=== PATIENT | male | born 1965 | race Caucasian/White ===

== ENCOUNTER 2017-02-16 15:47 | Inpatient (IN) | payer BC ==
--- NOTE | ~2017-02-16 | HP ---
History And Physical [address] [place]. [address] NAME: SANA PAINTER JR : 63 STATUS : ADM IN PAT#: [id number] AGE: 51 ADM/REG DATE : 02/16/17 MR#: [id number] REPORT SERV DATE: 02/16/17 DICTATED BY: HAI HESS DATE: 02/16/17 REPORT STATUS : Draft TRANSCRIBED BY: MODDejan DATE: 02/16/17 DATE OF ADMISSION: 02/16/2017 CHIEF COMPLAINT: Nausea, vomiting, weight loss. HISTORY OF PRESENT ILLNESS: This patient is a 51-year-old gentleman, who presented as a direct admission with complaints of nausea and vomiting ongoing for approximately five weeks. Does state that he has unable to eat in over four weeks, reporting a weight loss of 50 pounds. The patient states his last bowel movement was approximately two weeks prior to this admission. He denies any fever or any chills. Does state that he has been having shortness of breath with ambulation. Denies chest pain. Does state that he is having abdominal cramping. Abdomen is slightly tender to touch. REVIEW OF SYSTEMS: Otherwise negative review of system except as listed above. PAST MEDICAL HISTORY: 1. Gastroesophageal reflux disease. 2. Parkinson. 3. Insomnia. 4. Acute bronchitis. 5. Hypothyroidism. 6. Hyperlipidemia. 7. Depression. 8. Abdominal pain. 9. Bipolar. 10.Anxiety. 11.Chronic pain. 12.Restless legs syndrome. PAST SURGICAL HISTORY: 1. Appendectomy. 2. Partial gastrectomy. ALLERGIES: NO KNOWN DRUG ALLERGIES. SOCIAL HISTORY: The patient is . Two sons, one living and one from leukemia. Uses smokeless tobacco. Denies alcohol use. MEDICATIONS: Home medications to be obtained. PHYSICAL EXAMINATION: VITAL SIGNS: O2 sats 100% on room air, weight is 192.8, temp 97.8, pulse is 101, respirations are 20, blood pressure is 154/87. GENERAL: This patient is alert and oriented, in no acute distress. NEUROLOGICAL: The patient is alert and oriented x3. History And Physical [address] [address] NAME: SANA PAINTER JR : 63 STATUS : ADM IN PAT#: [id number] AGE: 51 ADM/REG DATE : 02/16/17 MR#: [id number] REPORT SERV DATE: 02/16/17 DICTATED BY: HAI HESS DATE: 02/16/17 REPORT STATUS : Draft TRANSCRIBED BY: ELDA DATE: 02/16/17 NECK: No JVD. No nodes. CHEST: Nontender to touch. LUNGS: Clear bilateral. No wheezes, rales, or rhonchi. CARDIOVASCULAR: The patient is tachycardic. No murmurs, rubs, and gallops. ABDOMEN: Soft, slightly tender to touch. Bowel sounds are active. EXTREMITIES: No edema. No cyanosis. LABORATORY DATA: To be obtained. IMAGING: To be obtained. PLAN OF CARE: 1. Nausea and vomiting with weight loss. The patient is known with greater than 50 pounds weight loss over the past five weeks. We will obtain a nutrition consult. We will initiate IV fluids as well as antiemetics. We will consult GI to follow. The patient has been seen by Dr. Valle, outpatient. The patient will undergo an EGD in the a.m. 2. Dehydration. Again, IV fluids will be initiated. Laboratory data will be obtain. Electrolytes will be replaced per electrolyte protocol if needed. 3. Generalized weakness. The patient does state that he has had increased generalized weakness over the past several weeks. We will obtain a PT eval for discharge planning. 4. History of gastritis. Again, GI will be following the patient during this hospital stay. 5. History of gastric ulcer. 6. The patient is a full code. The patient will be followed by Dr. Jb Negron during this hospital stay. [facility]/ELDA Hai Hess NP / [id number] CC: MD Christopher Castro Lisa L
--- NOTE | ~2017-02-16 | DS ---
Discharge Summary [facility] [place] [address] [place]. [address] NAME: SANA PAINTER JR : 63 STATUS : DIS IN PAT#: [id number] AGE: 51 ADM/REG DATE : 02/16/17 MR#: [id number] REPORT SERV DATE: 02/25/17 DICTATED BY: DATE: REPORT STATUS : Draft TRANSCRIBED BY: MODL DATE: 02/24/17 ADMISSION DATE: 02/16/2017 DISCHARGE DATE: 02/24/2017 DISCHARGE DIAGNOSES: 1. Chronic nausea with vomiting. 2. Unintentional weight loss. 3. Opioid-induced constipation. 4. History of partial antrectomy. 5. Parkinson disease. CONSULTATIONS: Tony Castaneda nurse practitioner, Gastroenterology. PERTINENT TEST AND PROCEDURES: 1. Upper GI endoscopy 02/16/2017, impression:. a. Esophageal mucosal changes not likely significant, but possibly from eosinophilic esophagitis. b. An antrectomy was found, anastomosis characterized by inflammation and narrowing of the gastric outlet biopsy. c. 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 2. Upper GI endoscopy 02/19/2017, impression:. a. Normal esophagus. b. Bilious gastric fluid. c. Billroth 1 anastomosis was found. Anastomosis characterized by healthy- appearing mucosa. d. Acquired duodenal stenosis biopsy. 3. Water soluble Gastrografin study, 02/18/2017, impression: Status post gastrectomy with patent gastrojejunostomy approximately 8 cm distal to the gastrojejunostomy. There is an approximate 5 cm segment of stricture to proximal jejunum with severe luminal narrowing. 4. KUB, 02/18/2017, impression: Oral contrast ingested 5 hours earlier has passed into right colon. No upper GI tract obstruction. Mild fecal burden in the colon. CHIEF COMPLAINT UPON ADMISSION: Nausea, vomiting, and weight loss. HOSPITAL COURSE: Please refer to history and physical dated 02/16/2017, provided by nurse jen Gupta, for complete details pertaining to patient's initial presentation upon admission and health history. Please also refer to interim discharge summary dated 02/22/2017. Covering dates of service between 02/16/2017 and 02/22/2017 provided by nurse jen Gupta. Briefly, the patient is a 51-year-old male with a past medical history significant for gastroesophageal reflux disease, Parkinson disease, abdominal pain, and chronic nausea. Discharge Summary [facility] [place] [address] [place]. [address] NAME: SANA PAINTER JR : 63 STATUS : DIS IN PAT#: [id number] AGE: 51 ADM/REG DATE : 02/16/17 MR#: [id number] REPORT SERV DATE: 02/25/17 DICTATED BY: DATE: REPORT STATUS : Draft TRANSCRIBED BY: MODL DATE: 02/24/17 The patient presented to Dr. Tad Valle' office on 02/16/2017 with complaint of one-month history of nausea and vomiting. The patient also had reported 50-pound weight loss within the past month. During this office visit, the patient was reporting feeling weak and dehydrated. There was also concern for constipation, as the patient reported no bowel movement in over two weeks. Per review of Dr. Valle' office note, the patient has a history of gastric surgery for gastric ulcer in 1997. Recent upper GI showed narrowing just distal to anastomosis. There was question if stricture from NSAIDs was contributing to patient's symptoms. Outpatient EGD was recommended, however, the patient appeared clinically dehydrated and was directly admitted for hydration and upper endoscopy during admission. The patient underwent upper GI endoscopies done on 02/17/2017 and 02/19/2017. During 02/17/2017 procedure, the patient was found to have jejunal stenosis just past anastomosis in one of the jejunal limbs, dilated with scope. The patient's second upper GI endoscopy included biopsy taken at site of stenosis found at second part of duodenum. Gastric antrum anastomosis biopsy was negative for malignancy and immunohistochemistry negative for H. pylori. Duodenal biopsies, final pathologic diagnosis reported anastomotic mucosa with superficial erosion, focal activity, and regenerative changes. No H. pylori organisms seen. 1. Acute on chronic nausea with vomiting. The patient's vomiting resolved status post endoscopy during which the scope dilation of jejunum occurred. The patient has continued to use antiemetics as needed. GI also recommended erythromycin 250 mg after every meal and at bedtime until re-evaluation as an outpatient with Dr. Valle on 03/17/2017. At the time of discharge, the patient was tolerating GI soft diet without difficulty. Chronic nausea had returned to baseline. 2. Unintentional weight loss. This was secondary to narrowing distal to gastrojejunal anastomosis. The patient is now able to consume small frequent meals without vomiting. Nutritional shakes have also been encouraged. 3. Opioid-induced constipation. Prior to this admission, the patient reported no bowel movement in two weeks. The patient was placed on Movantik with recommendation to continue this medication per GI. The patient's insurance denied Movantik and prescription was changed to Amitiza 24 mcg p.o. twice daily. 4. History of antrectomy secondary to ulcer. 5. Parkinson disease. The patient requested rolling walker and cane for home use during this admission. These were provided prior to discharge. Continue home medications. DISCHARGE CONDITION: At the time of discharge, the patient is hemodynamically stable. DISCHARGE DIET: GI soft diet to be advanced as tolerated. DISCHARGE MEDICATIONS: 1. Abilify 15 mg tablet p.o. daily at bedtime. 2. Sinemet 25/100 mg tablet p.o. twice daily. 3. Erythromycin 250 mg tablet p.o. before meals and at bedtime. 4. Levothyroxine 75 mcg p.o. daily. 5. Amitiza 24 mcg p.o. twice daily. 6. Protonix 40 mg tablet p.o. before breakfast and supper x8 weeks. Therapy as Discharge Summary [address] [place]. [address] NAME: SANA PAINTER : 63 STATUS : DIS IN PAT#: [id number] AGE: 51 ADM/REG DATE : 02/16/17 MR#: [id number] REPORT SERV DATE: 02/25/17 DICTATED BY: DATE: REPORT STATUS : Draft TRANSCRIBED BY: MODL DATE: 02/24/17 recommended per GI. 7. Zanaflex 4 mg tablet p.o. twice daily. 8. Topamax 50 mg tablet p.o. daily. 9. Artane 2 mg tablet p.o. four times daily. 10.Tylenol 325 mg tablet, take two tablets p.o. every four hours as needed. 11.Dulcolax 10 mg suppository per rectum twice daily as needed. 12.Hydrocodone 10/325 mg tablet, one tablet p.o. four times daily scheduled. Hold for sedation. 13.Antivert 25 mg tablet p.o. three times daily as needed. 14.Zofran ODT 4 mg tablet, 4-8 mg p.o./sublingual every four hours as needed. 15.Voltaren 75 mg tablet p.o. twice daily. This was a home med. The patient was advised to discontinue this medication secondary to GI stricture possibly related to NSAID use. DISCHARGE INSTRUCTIONS: 1. Follow up with BARRETT Hess at [facility] 03/17/2017 at 1:15 p.m. 2. The patient was instructed to return to the emergency department for any acute onset of fever 100.4 degrees or higher lasting more than one hour, recurrence of intractable nausea or vomiting, inability to maintain p.o. intake or any other health concerns that are deviations from his health status at the time of this discharge. JENNY/ELDA ADEEL Kenney / [id number] CC: MD Christopher Mccormack II, Lisa L
--- NOTE | ~2017-02-16 | EGD ---
EGD REPORT [facility] [address] [address] NAME: SANA PAINTER JR : 63 STATUS : ADM IN PAT#: [id number] AGE: 51 ADM/REG DATE : 02/16/17 MR#: [id number] REPORT SERV DATE: 02/19/17 DICTATED BY: LANE CRISTINA DATE: 02/19/17 REPORT STATUS : Draft TRANSCRIBED BY: [facility] DATE: 02/19/17 Endoscopy Center Patient Name: Sana Painter Date of : 1965 Attending MD: LANE CRISTINA MD Procedure Date No Time: 02/19/2017 Procedure: Upper GI endoscopy Indications: Stenosis of the duodenum Medicines: Sedation Required Anesthesia Staff Assistance Complications: No immediate complications. Estimated blood loss: Minimal. Procedure: Pre-Anesthesia Assessment: - ASA Grade Assessment: III - A patient with severe systemic disease. After obtaining informed consent, the endoscope was passed under direct vision. Throughout the procedure, the patient's blood pressure, pulse, and oxygen saturations were monitored continuously. The GIF [id number] [id number] was introduced through the mouth, and advanced to the third part of duodenum. The upper GI endoscopy was accomplished without difficulty. The patient tolerated the procedure well. Findings: The examined esophagus was normal. Bilious fluid was found in the stomach. Evidence of a Billroth I anastomosis was found in the gastric antrum. The anastomosis was characterized by healthy appearing mucosa. An acquired benign-appearing, intrinsic moderate stenosis was found at 2nd part of the duodenum and was traversed. Biopsies were taken with a cold forceps for histology. Impression: - Normal esophagus. - Bilious gastric fluid. - A Billroth I anastomosis was found, anastomosis characterized by healthy appearing mucosa. - Acquired duodenal stenosis. Biopsied. Recommendation: - Return patient to [facility] for ongoing care. Procedure Code(s): --- Professional --- 22462, Esophagogastroduodenoscopy, flexible, transoral; with biopsy, single or multiple Diagnosis Code(s): --- Professional --- EGD REPORT [facility] [address] [address] NAME: SANA PAINTER JR : 63 STATUS : ADM IN [facility]#: [id number] AGE: 51 ADM/REG DATE : 02/16/17 MR#: [id number] REPORT SERV DATE: 02/19/17 DICTATED BY: LANE CRISTINA. DATE: 02/19/17 REPORT STATUS : Draft TRANSCRIBED BY: [employer] DATE: 02/19/17 Z98.0, Intestinal bypass and anastomosis status K31.5, Obstruction of duodenum CPT copyright 2013 [employer]. All rights reserved. The codes documented in this report are preliminary and upon freight rate clerk review may be revised to meet current compliance requirements. LANE CRISTINA MD 02/19/2017 10:00 AM This report has been signed electronically. Number of Addenda: 0 Note Initiated On: 02/19/2017 9:14 AM Scope Withdrawal Time 0 hours 0 minutes 0 seconds [id number] [id number]
--- NOTE | ~2017-02-16 | IDS ---
Interim Discharge Summary [facility] [address] [place]. [address] NAME: SANA PAINTER JR : 63 STATUS : ADM IN PAT#: [id number] AGE: 51 ADM/REG DATE : 02/16/17 MR#: [id number] REPORT SERV DATE: 02/22/17 DICTATED BY: HAI HESS DATE: 02/22/17 REPORT STATUS : Draft TRANSCRIBED BY: MODL DATE: 02/22/17 ADMISSION DATE: 02/16/2017 DISCHARGE DATE: DATE OF DISCHARGE: Unknown. DATE OF INTERIM NOTE: 02/22/2017. INTERIM DIAGNOSES: 1. Nausea and vomiting, improving. 2. Status post endoscopy, 02/17/2017, by Dr. Fragoso. 3. Status post endoscopy, 02/19/2017, by Dr. Lorenzo. Area biopsied, pathology, negative malignancy. 4. Generalized weakness. PT evaluation completed. No needs at this time. 5. Abdominal cramping due to #1. 6. Constipation, resolved. CONSULTATION: GI, Dr. Fragoso, 02/17/2017. IMAGIN. Gastrectomy: Impression: Apparently, approximately 8 cm distal to the gastrojejunostomy, there is an appropriate 5 cm segment of strictured proximal jejunum with severe luminal narrowing. This is a similar study to 02/04/2017. 2. KUB, 02/18/2017: Impression: No upper GI tract obstruction. Mild fecal burden in the colon. 3. Endoscopy, 02/17/2017, by Dr. Fragoso: Impression: Esophageal mucosa changes, not likely significant, but possibly for esophagitis. Jejunal stenosis just post- anastomosis as one of the jejunal limbs dilated with the scope. Antrectomy was found, anastomosis characterized by inflammation and narrowing on the gastric outlet. Biopsied. 4. Endoscopy, 02/19/2017, Dr. Lorenzo: Impression: Normal esophagus. Acquired duodenal stenosis. Biopsied. COURSE OF HOSPITAL STAY: Please refer to history and physical dictated by Hai Hess, nurse practitioner for complete admission details as well as consultation notes by GI. This patient is a 51-year-old gentleman who presented as a direct admission due to complications of nausea and vomiting ongoing for approximately five weeks prior to this admission. The patient was sent over by Dr. Tad Valle due to the patient's complaints of nausea, vomiting, and weight loss. The patient did state upon admission that he had approximately greater than 50-pound weight loss over five to six weeks. 1. Nausea and vomiting, ongoing. Patient was admitted due to complaints of ongoing nausea and vomiting. Stated he was unable to keep anything down for approximately five to six weeks and just stated he had had greater than 50-pound weight loss. GI was consulted to see. The patient did undergo two procedures as noted above. Diet has been advanced to full liquids at this time and he is tolerating. Nausea is being controlled. The Interim Discharge Summary [facility] [address] [facility] [place]. [address] NAME: SANA PAINTER JR : 63 STATUS : ADM IN [facility]#: [id number] AGE: 51 ADM/REG DATE : 02/16/17 MR#: [id number] REPORT SERV DATE: 02/22/17 DICTATED BY: HAI HESS DATE: 02/22/17 REPORT STATUS : Draft TRANSCRIBED BY: ELDA DATE: 02/22/17 patient may need a surgical consult. Awaiting GI's recommendation. 2. Status post endoscopy on 02/17/[address] Fragoso as noted above. 3. Status post endoscopy, 02/19/2017, Dr. Lorenzo. Area was biopsied, negative malignancy. 4. Generalized weakness. The patient did state upon admission that he was having difficulty ambulating due to weakness. PT evaluation has been completed at this time. The patient has been able to ambulate in the unit. No needs at this time upon discharge are noted. 5. Abdominal cramping due to #1. The patient does deny at this time abdominal tenderness or cramping. We will continue to monitor. 6. Constipation. The patient stated prior to this admission that he had gone two weeks without a bowel movement. Stool softeners were provided. The patient has had several bowel movements, last being on 02/21/2017. At this time, this has resolved. 7. Disposition. Awaiting GI's recommendation. Patient may need a surgical consult due to stenosis. The patient will be followed by Dr. Juan M Glover. [facility]/TRANL Hai Hess NP / [id number] CC: MD VICKI Castro LISA L
--- NOTE | ~2017-02-16 | EGD ---
EGD REPORT [facility] [address] [address] NAME: SANA PAINTER JR : 63 STATUS : ADM IN PAT#: [id number] AGE: 51 ADM/REG DATE : 02/16/17 MR#: [id number] REPORT SERV DATE: 02/17/17 DICTATED BY: FLO MONET DATE: 02/17/17 REPORT STATUS : Draft TRANSCRIBED BY: [facility] DATE: 02/17/17 Endoscopy Center Patient Name: Sana Painter Date of : 1965 Attending MD: FLO MONET MD Procedure Date No Time: 02/17/2017 Procedure: Upper GI endoscopy Indications: Nausea with vomiting Referring MD: ROSINA AMINLARISSA Medicines: Monitored Anesthesia Care Complications: No immediate complications. Estimated blood loss: Minimal. Procedure: Pre-Anesthesia Assessment: - ASA Grade Assessment: III - A patient with severe systemic disease. After obtaining informed consent, the endoscope was passed under direct vision. Throughout the procedure, the patient's blood pressure, pulse, and oxygen saturations were monitored continuously. The GIF H190 [id number] was introduced through the mouth, and advanced to the afferent and efferent jejunal loops. The upper GI endoscopy was accomplished without difficulty. The patient tolerated the procedure well. Findings: Mucosal changes including ringed esophagus and longitudinal furrows were found in the entire esophagus. possibly related to eosinophilic esophagitis but not biopsied due to lack of symptoms. Evidence of an antrectomy was found in the gastric antrum. The anastomosis was characterized by inflammation. Biopsies were taken with a cold forceps for histology. Estimated blood loss was minimal. A mild benign-appearing, intrinsic stenosis that was traversed was found in the jejunum just distal to the anastamosis. The scope was used to dilated this with mild resistance and a small/moderate amount of hemorrhage that resolved spontaneously. The cardia and gastric fundus were normal on retroflexion. The exam was otherwise without abnormality. Impression: - Esophageal mucosal changes not likely significant but possibly from eosinophilic esophagitis. - An antrectomy was found, anastomosis characterized by inflammation and narowing of the gastric outlet. Biopsied. - Jejunal stenosis just past anatamosis in one of the jejunal limbs - dilated with the scope. EGD REPORT [address] [place]. [address] NAME: PAINTERSANA DWYER JR : 63 STATUS : ADM IN [facility]#: [id number] AGE: 51 ADM/REG DATE : 02/16/17 MR#: [id number] REPORT SERV DATE: 02/17/17 DICTATED BY: FLO MONET DATE: 02/17/17 REPORT STATUS : Draft TRANSCRIBED BY: [employer] DATE: 02/17/17 - The examination was otherwise normal. Recommendation: - Return patient to hospital [facility] for ongoing care. - Clear liquid diet today. - Use Protonix (pantoprazole) 40 mg PO BID for 8 weeks. - Do an upper GI series at the next available appointment. Procedure Code(s): --- Professional --- 49209, Esophagogastroduodenoscopy, flexible, transoral; with biopsy, single or multiple Diagnosis Code(s): --- Professional --- K20.9, Esophagitis, unspecified Z90.3, Acquired absence of stomach [part of] K56.69, Other intestinal obstruction R11.2, Nausea with vomiting, unspecified CPT copyright 2013 [employer]. All rights reserved. The codes documented in this report are preliminary and upon medical insurance coder review may be revised to meet current compliance requirements. Flo Monet MD FLO MONET MD 02/17/2017 3:44 PM This report has been signed electronically. Number of Addenda: 0 Note Initiated On: 02/17/2017 2:53 PM Scope Withdrawal Time 0 hours 0 minutes 0 seconds [id number] [id number]
[2017-02-16 18:06] LABS: BASOPHILS ABSOLUTE 0.09 10/3/uL (0.0-0.16); EOSINOPHILS 0.9 %; EOSINOPHILS ABSOLUTE 0.08 10/3/uL (0.0-0.53); HEMATOCRIT 38.2 % (36.0-48.0); HEMOGLOBIN 12.3 g/dL (12.0-16.0); IMMATURE GRANULOCYTES 0.1 %; IMMATURE GRANULOCYTES ABSOLUTE 0.01 10/3/uL (0.0-0.11); LYMPHOCYTES 14.9 %; LYMPHOCYTES ABSOLUTE 1.35 10/3/uL (0.67-4.30); MEAN CORPUS HGB CONC 32.2 g/dL (32.0-36.0); MEAN CORPUSCULAR HEMOGLOB 22.5 pg (26.0-34.0); MEAN PLATELET VOLUME 9.8 fL (9.2-13.0); MONOCYTES 7.8 %; MONOCYTES ABSOLUTE 0.71 10/3/uL (0.21-1.20); NEUTROPHILS 75.3 %; NEUTROPHILS ABSOLUTE 6.85 10/3/uL (2.02-8.40); PLATELET COUNT 514 10/3/uL (150-400); RBC DISTRIBUTION WIDTH 18.3 % (12.0-16.0); RED CELL COUNT 5.46 10/6/uL (4.0-5.6); WHITE BLOOD CELLS 9.1 10/3/uL (4.5-10.5)
[2017-02-16 18:07] LABS: MANUAL DIFF NO %
[2017-02-16 18:24] LABS: A/G RATIO 0.9 (0.7-1.9); ALBUMIN 3.4 G/DL (3.5-5.0); ALKALINE PHOSPHATASE 117 U/L (45-117); BUN (BLOOD UREA NITROGEN) 9 MG/DL (6-23); CALCIUM, SERUM 9.4 MG/DL (8.5-10.4); CHLORIDE, SERUM 104 MMOL/L (96-112); CO2 (CARBON DIOXIDE) 24 MMOL/L (24-34); CREATININE 0.97 MG/DL (0.55-1.02); GFR AFRICAN AMERICAN 78 ML/MIN (>=60); GFR NON AFRICAN AMERICAN 67 ML/MIN (>=60); GLOBULIN 3.9 G/DL (2.5-4.1); GLUCOSE, SERUM 99 MG/DL (60-99); POTASSIUM, SERUM 4.4 MMOL/L (3.5-5.3); SGOT(AST) 37 U/L (5-40); SGPT(ALT) 46 U/L (5-65); SODIUM, SERUM 138 MMOL/L (135-148); TOTAL BILIRUBIN 0.9 MG/DL (0-1.2); TOTAL PROTEIN 7.3 G/DL (6.0-8.5)
[2017-02-17] MEDS ORDERED: NORCO1 TAB PO (12:48)
[2017-02-17] MEDS ORDERED: ART2 PO (12:48)
[2017-02-17] MEDS ORDERED: VOLT75 PO (12:48)
[2017-02-17] MEDS ORDERED: KAPIDEX60 MG PO (12:48)
[2017-02-17] MEDS ORDERED: ZOFRAN ODT4 MG PO (12:49)
[2017-02-17] MEDS ORDERED: TOPAMAX50 MG PO (12:49)
[2017-02-17] MEDS ORDERED: SIN25 PO (12:49)
[2017-02-17] MEDS ORDERED: ZANAFLEX 4 MG TA4 MG PO (12:49)
[2017-02-17] MEDS ORDERED: ABILIFY15 PO (12:50)
[2017-02-17] MEDS ORDERED: MCZ25 PO (12:50)
[2017-02-17] MEDS ORDERED: UNITHROID75 MCG PO (12:50)
[2017-02-17] MEDS ORDERED: REG PO (12:50)
[2017-02-19 05:33] LABS: CHLORIDE, SERUM 110 MMOL/L (96-112); CO2 (CARBON DIOXIDE) 20 MMOL/L (24-34); CREATININE 0.76 MG/DL (0.70-1.30); GFR AFRICAN AMERICAN 122 ML/MIN (>=60); GFR NON AFRICAN AMERICAN 105 ML/MIN (>=60); GLUCOSE, SERUM 103 MG/DL (60-99); PHOSPHORUS, SERUM 2.9 MG/DL (2.5-4.5); SODIUM, SERUM 140 MMOL/L (135-148)
[2017-02-19 05:48] LABS: BUN (BLOOD UREA NITROGEN) 2 MG/DL (6-23); CALCIUM, SERUM 8.1 MG/DL (8.5-10.4); POTASSIUM, SERUM 3.5 MMOL/L (3.5-5.3)
[2017-02-19 06:21] LABS: HEMOGLOBIN 10.1 g/dL (13.6-17.8)
[2017-02-19 06:22] LABS: HEMATOCRIT 33.4 % (40.0-51.0)
[2017-02-20 07:27] LABS: BASOPHILS 0.9 %; BASOPHILS ABSOLUTE 0.05 10/3/uL (0.0-0.16); EOSINOPHILS 5.3 %; EOSINOPHILS ABSOLUTE 0.28 10/3/uL (0.0-0.53); HEMATOCRIT 32.5 % (40.0-51.0); IMMATURE GRANULOCYTES 0.2 %; IMMATURE GRANULOCYTES ABSOLUTE 0.01 10/3/uL (0.0-0.11); LYMPHOCYTES 23.3 %; LYMPHOCYTES ABSOLUTE 1.24 10/3/uL (0.67-4.30); MEAN CORPUS HGB CONC 30.8 g/dL (32.0-36.0); MEAN CORPUSCULAR HEMOGLOB 22.1 pg (26.0-34.0); MEAN CORPUSCULAR VOLUME 71.9 fL (80-100); MEAN PLATELET VOLUME 9.8 fL (9.2-13.0); MONOCYTES 8.6 %; MONOCYTES ABSOLUTE 0.46 10/3/uL (0.21-1.20); NEUTROPHILS 61.7 %; NEUTROPHILS ABSOLUTE 3.28 10/3/uL (2.02-8.40); PLATELET COUNT 380 10/3/uL (150-400); RBC DISTRIBUTION WIDTH 18.9 % (12.0-16.0); RED CELL COUNT 4.52 10/6/uL (4.7-6.1)
[2017-02-20 07:28] LABS: MANUAL DIFF NO %; WHITE BLOOD CELLS 5.3 10/3/uL (4.5-10.5)
[2017-02-20 07:34] LABS: BUN (BLOOD UREA NITROGEN) 1 MG/DL (6-23); CALCIUM, SERUM 8.4 MG/DL (8.5-10.4); CHLORIDE, SERUM 108 MMOL/L (96-112); CREATININE 0.76 MG/DL (0.70-1.30); GFR AFRICAN AMERICAN 122 ML/MIN (>=60); GFR NON AFRICAN AMERICAN 105 ML/MIN (>=60); GLUCOSE, SERUM 118 MG/DL (60-99); POTASSIUM, SERUM 3.6 MMOL/L (3.5-5.3); SODIUM, SERUM 141 MMOL/L (135-148)
[2017-02-20 07:35] LABS: CO2 (CARBON DIOXIDE) 26 MMOL/L (24-34)
[2017-02-20 08:08] LABS: ANISOCYTOSIS 1+ (5-10/OIF) (0-5/OIF); PLATELET ESTIMATE ADQ (ADEQUATE)
[2017-02-22 04:07] LABS: BUN (BLOOD UREA NITROGEN) 3 MG/DL (6-23); CHLORIDE, SERUM 107 MMOL/L (96-112); CO2 (CARBON DIOXIDE) 26 MMOL/L (24-34); CREATININE 0.83 MG/DL (0.70-1.30); GFR AFRICAN AMERICAN 117 ML/MIN (>=60); GFR NON AFRICAN AMERICAN 101 ML/MIN (>=60); GLUCOSE, SERUM 98 MG/DL (60-99); POTASSIUM, SERUM 3.6 MMOL/L (3.5-5.3); SODIUM, SERUM 141 MMOL/L (135-148)
[2017-02-23 04:46] LABS: BASOPHILS 1.1 %; BASOPHILS ABSOLUTE 0.06 10/3/uL (0.0-0.16); EOSINOPHILS 3.1 %; EOSINOPHILS ABSOLUTE 0.17 10/3/uL (0.0-0.53); HEMATOCRIT 35.2 % (40.0-51.0); HEMOGLOBIN 11.2 g/dL (13.6-17.8); IMMATURE GRANULOCYTES 0.2 %; IMMATURE GRANULOCYTES ABSOLUTE 0.01 10/3/uL (0.0-0.11); LYMPHOCYTES 31.5 %; MEAN CORPUS HGB CONC 31.8 g/dL (32.0-36.0); MEAN CORPUSCULAR HEMOGLOB 22.6 pg (26.0-34.0); MEAN PLATELET VOLUME 9.8 fL (9.2-13.0); MONOCYTES 9.4 %; MONOCYTES ABSOLUTE 0.51 10/3/uL (0.21-1.20); NEUTROPHILS 54.7 %; NEUTROPHILS ABSOLUTE 2.95 10/3/uL (2.02-8.40); PLATELET COUNT 373 10/3/uL (150-400); RBC DISTRIBUTION WIDTH 19.2 % (12.0-16.0); RED CELL COUNT 4.96 10/6/uL (4.7-6.1); WHITE BLOOD CELLS 5.4 10/3/uL (4.5-10.5)
[2017-02-23 04:47] LABS: MANUAL DIFF NO %
[2017-02-23 05:00] LABS: BUN (BLOOD UREA NITROGEN) 3 MG/DL (6-23); CALCIUM, SERUM 9.2 MG/DL (8.5-10.4); CHLORIDE, SERUM 108 MMOL/L (96-112); CO2 (CARBON DIOXIDE) 25 MMOL/L (24-34); CREATININE 0.87 MG/DL (0.70-1.30); GFR AFRICAN AMERICAN 115 ML/MIN (>=60); GFR NON AFRICAN AMERICAN 99 ML/MIN (>=60); GLUCOSE, SERUM 96 MG/DL (60-99); POTASSIUM, SERUM 3.6 MMOL/L (3.5-5.3); SODIUM, SERUM 143 MMOL/L (135-148)
[2017-02-24 06:49] LABS: BUN (BLOOD UREA NITROGEN) 6 MG/DL (6-23); CALCIUM, SERUM 9.4 MG/DL (8.5-10.4); CHLORIDE, SERUM 106 MMOL/L (96-112); CO2 (CARBON DIOXIDE) 26 MMOL/L (24-34); CREATININE 0.93 MG/DL (0.70-1.30); GFR AFRICAN AMERICAN 109 ML/MIN (>=60); GFR NON AFRICAN AMERICAN 94 ML/MIN (>=60); GLUCOSE, SERUM 104 MG/DL (60-99); POTASSIUM, SERUM 4.2 MMOL/L (3.5-5.3); SODIUM, SERUM 138 MMOL/L (135-148)
[2017-02-24] MEDS ORDERED: ERY-TAB250 MG PO (11:35)
[2017-02-24] MEDS ORDERED: MOVANTIK25 MG PO (11:37)
[2017-02-24] MEDS ORDERED: PROTONIX PO (11:39)
[2017-02-24] MEDS ORDERED: T PO (11:43)
[2017-02-24] MEDS ORDERED: BISR PR (11:44)
== END 2017-02-24 13:48 | disposition home or self-care (01) | DRG 392 ==
LOC: 4EA 15:47
PROVIDERS: Internal Medicine; Internal Medicine Gastroenterology; Nurse Practitioner Adult Health; Nurse Practitioner Family
PROC: 0DB78ZX Excision of Stomach, Pylorus, Via Natural or Artificial Opening Endoscopic, Diagnostic (ICD-10-PCS; principal; 2017-02-17 15:18)
PROC: 0DB98ZX Excision of Duodenum, Via Natural or Artificial Opening Endoscopic, Diagnostic (ICD-10-PCS; 2017-02-19)
DX: R11.2 Nausea with vomiting, unspecified (principal); G20 Parkinson's disease; K59.03 Drug induced constipation; T40.2X5A Adverse effect of other opioids, initial encounter; E86.0 Dehydration
CPT/HCPCS: 74000; 74240; 80048; 80053; 83735; 84100; 84443; 85014; 85018; 85025; 88305; 88342; 97116-GP; 97161-GP; A9270-GY; C9113; J0330; J0456; J1170; J2405; J2550; J2765; J3010

== ENCOUNTER 2017-02-26 18:59 | Inpatient (IN) | payer BC ==
--- NOTE | ~2017-02-26 | OP ---
Record Of Operation [facility] [address] [place]. [address] NAME: SANA PAINTER JR : 63 STATUS : ADM IN 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 PROCEDURE: Laparotomy with distal gastrectomy, resection of efferent limb of gastrojejunal anastomosis, and Mary-en-Y gastrojejunostomy. SURGEON: Julieta Tyler M.D. ANESTHESIA: General with intubation. COMPLICATIONS: None. ESTIMATED BLOOD LOSS: Less than 50 mL. SPECIMENS: Distal stomach including gastrojejunal anastomosis and segment of efferent limb of jejunum. DRAINS: [place] in subcutaneous tissue. LAP AND SPONGE COUNT: Correct x3. 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 It was felt that laparotomy with resection of the involved portion of the efferent limb, possibly include the gastrojejunal anastomosis, was indicated. This procedure, the risks, benefits, and alternatives, including not limited to the risk for bleeding, infection, enterotomy, injury to any abdominal structure, postop small bowel obstruction, ileus, incisional hernia, dehiscence, anastomotic leak, resulting in peritonitis, sepsis, and , recurrent gastric outlet obstruction, gastroparesis, and unforeseen complications including deep venous thrombosis, pulmonary embolus, myocardial infarction, stroke, pneumonia, and , were fully and completely explained to the patient and his family at length on several occasions prior to surgery. The fact that this was a major operation with risk for major morbidity and mortality has been explained as well as expected length of recovery. The patient had questions, which were answered. He fully understood the risks and agreed to the surgery as planned. FINDINGS: The patient was found to have a tight stricture of the efferent limb just beyond the anastomosis. This was apparent obstruction. However, the gastrojejunal anastomosis itself also appeared to be tight and was felt also possibly to be obstructed and that fluid Record Of Operation [facility] [address] [place]. [address] NAME: SANA PAINTER JR : 63 STATUS : ADM IN PAT#: [id number] AGE: 51 ADM/REG DATE : 02/26/17 MR#: [id number] REPORT SERV DATE: 03/05/17 DICTATED BY: JULIETA TYLER III DATE: 03/05/17 REPORT STATUS : Draft TRANSCRIBED BY: ELDA DATE: 03/05/17 would not pass through it after being passed into the stomach through the NG tube. Therefore, resection of the distal stomach with the proximal portion of the efferent limb of the jejunum was performed. DESCRIPTION OF PROCEDURE: After being properly identified and after discussing the risks of surgery with the patient's family again in the preoperative area, the patient was taken to the operating room and placed in the supine position on the operating room table. General anesthesia was administered. He was intubated without difficulty. An NG tube and a Zee catheter were inserted. The abdomen was prepped and draped sterilely in the usual fashion. After an appropriate "time-out" per JCAHO standards, a midline incision was made from just beneath the xiphoid process to the umbilicus. The incision was continued through the subcutaneous tissue. Hemostasis was controlled with electrocautery. The incision was continued through the fascia. The abdominal cavity was entered. There were dense adhesions between the omentum and several loops of small bowel and the underside of the abdominal wall. Using sharp dissection, these adhesions were carefully divided. This took a considerable amount of time. The abdomen was inspected. We identified the gastrojejunal anastomosis. We clearly identified the afferent and efferent limbs. The afferent limb was fairly long. The exact point of obstruction was not initially clear. There was no obvious extrinsic abnormality of either the afferent or efferent limbs. There were dense adhesions and the efferent limb was very twisted and torturous. Using sharp dissection, these adhesions were carefully divided and the efferent limb was carefully straightened proximally and distally. There was still no obvious point of obstruction. For this reason, about 500 mL of saline was passed through the NG tube in the stomach. The stomach was noted to distend with fluid. It was noted that the fluid did not pass readily through the gastrojejunal anastomosis. The gastrojejunal anastomosis itself was very tight, perhaps 1 cm in diameter to 2 cm in diameter at most. It was felt that this might be the point of obstruction and was therefore felt that resection of the distal stomach to include this anastomosis was indicated. We selected a point for division of the afferent limb of the anastomosis, just proximal to the stomach. A window was made in the mesentery to the jejunum at this point. A CLIVE stapler was used to divide the jejunum at this point. We then selected a point for division of the efferent limb just beyond the anastomosis. A CLIVE stapler was used to divide the jejunum at this point. We then divided the distal stomach just proximal to the anastomosis. This was sent as a gastrojejunal anastomosis. We then performed a Mary-en-Y gastrojejunostomy. This was performed by making an anastomosis end yrrtbfe-sw-fsgh jejunum, to the antimesenteric border of the efferent limb of the jejunum. In doing this, we noted on opening the jejunum that there was a tight stricture in the jejunum which had been left. This was located some 6 cm distal to the original anastomosis. This was a very tight intrinsic stricture. It was not apparent externally and this was the region we could not initially recognize it. This additional segment of small bowel consisting of the proximal efferent limb; by using the CLIVE stapler, it was divided. This was an additional 4-5 cm of jejunum. This was sent separately as proximal jejunum of the efferent limb. Using normal jejunum of the efferent limb, we now performed an end gfrzjto-cq-pghn jejunal anastomosis. This was performed in two layers, using interrupted 3-0 silk sutures on the outer posterior layer, running 3-0 chromic suture on the inner layer, and interrupted 3-0 silk sutures on Record Of Operation [place] [id number] [facility] [place]. [address] NAME: SANA PAINTER : 63 STATUS : ADM IN [facility]#: [id number] AGE: 51 ADM/REG DATE : 02/26/17 MR#: [id number] REPORT SERV DATE: 05/12/17 DICTATED BY: JULIETA TYLER III AU DATE: 03/05/17 REPORT STATUS : Draft TRANSCRIBED BY: ELDA DATE: 03/05/17 the outer anterior layer. Upon completion of this, the anastomosis was widely patent to palpation. It was some 4-5 cm in length. It was not twisted or kinked in anyway and was not under any tension. The divided end of the jejunum was oversewn with interrupted 3-0 silk sutures. We then completed the Mary-en-Y portion of the anastomosis, an enteroenterostomy, some 30 cm distal to the gastric anastomosis. This was performed by a slei-hw-mzyc anastomosis between the proximal jejunum or original afferent limb; to the efferent limb, some 34 cm distal to the anastomosis. This was performed in a kjnn-iz-adfg fashion. The antimesenteric border of the small bowel proximally and distally were aligned with interrupted 3-0 silk sutures. A small opening was then made in the antimesenteric border of the small bowel proximally and distally and a CLIVE stapler was placed through this and fired. The defect created by the stapler was closed in two layers, using running 3-0 chromic suture on the inner layer, and interrupted 3-0 silk sutures on the outer anterior layer. The "crotch" of the anastomosis. It was secured with interrupted 3-0 silk sutures. Upon completion of this, the anastomosis here was widely patent to palpation. It was not twisted or kinked in any way. It was not under any tension. The mesenteric defect was closed with a running 3-0 chromic suture. The entire abdominal cavity irrigated copiously with saline. Hemostasis was assured. Both anastomosis were rechecked and inspected. Hemostasis was assured. The fascia was closed with a running looped #1 PDS suture. The skin was closed with skin ras over a Xin drain which was brought through the inferior aspect of the incision. Dressings were applied. Anesthesia was reversed, and the patient was taken to the recovery room in stable condition. He tolerated the procedure well. His family was informed results of surgery. The patient will remain in the hospital for postoperative care. This procedure was extremely difficult secondary to the patient's previous gastrectomy and adding 75% of time to the surgery and for this reason, modifier 22 was added to the procedure code. EVY/ELDA Julieta Tyler III, M.D. / [id number] CC: MD Christopher Norton Lisa L
--- NOTE | ~2017-02-26 | HP ---
History And Physical [place] [id number] [facility] [place]. [address] NAME: SANA PAINTER JR : 63 STATUS : ADM IN PAT#: [id number] AGE: 51 ADM/REG DATE : 02/26/17 MR#: [id number] REPORT SERV DATE: 02/27/17 DICTATED BY: KIMBERLY WEBB DATE: 02/26/17 REPORT STATUS : Draft TRANSCRIBED BY: MODDejan DATE: 02/26/17 DATE OF ADMISSION: 02/26/2017 POINT OF ENTRY: [facility] Emergency Department. PRIMARY RECORD CENTER SPECIALIST: Tad Valle M.D. CHIEF COMPLAINT: Nausea, vomiting, and vision loss. HISTORY OF PRESENT ILLNESS: Mr. Painter is a 51-year-old gentleman with a history of gastroesophageal reflux disease and peptic ulcer disease status post gastrojejunostomy approximately 20 years ago, who presents back to the emergency department today with reports of intractable nausea, vomiting, as well as vision loss. The patient was admitted to the Hospitalist Service from 02/16/2017 through 02/25/2017 for intractable nausea, vomiting, as well as weight loss. The patient underwent EGD on 02/17/2017 which showed some jejunal stenosis status post dilatation; however, the patient continued to have symptoms and therefore underwent repeat EGD on 02/19/2017, which reportedly showed duodenal stenosis, but I do not see any evidence of repeat dilatation. Biopsies were taken which reportedly are negative for malignancy. The patient states that at the time of discharge, he was able to tolerate some amount of oral intake. His nausea was much improved; however, he states that he was primarily using IV antiemetics. He states that upon discharge to home yesterday and without the use of IV antiemetics his nausea worsened and has had intractable nausea and vomiting since discharge. The patient states that beginning about Wednesday or Wednesday of this week about the time they started him on erythromycin he started develop vision troubles. At first he states that it was some blurry vision; however, this has progressed in severity to the point where now he states he only can see shadows. He is unable to read the newspaper, unable to see any detail on TV. He denies any other neurologic type symptoms. It is unclear if he mentioned any of these vision loss or blurry vision troubles to his physicians or nurses while he was inpatient. Initial evaluation in the emergency department was notable for labs consistent with some acute kidney injury and dehydration. CT scan of the brain is pending at the time of dictation. REVIEW OF SYSTEMS: Comprehensive review of systems otherwise negative unless listed in history of present illness. PREVIOUS MEDICAL HISTORY: 1. Gastroesophageal reflux disease with peptic ulcer disease status post gastrojejunostomy. 2. Parkinson disease. 3. Hypothyroidism. History And Physical [address] [address] NAME: SANA PAINTER JR : 63 STATUS : ADM IN PAT#: [id number] AGE: 51 ADM/REG DATE : 02/26/17 MR#: [id number] REPORT SERV DATE: 02/27/17 DICTATED BY: KIMBERLY WEBB DATE: 02/26/17 REPORT STATUS : Draft TRANSCRIBED BY: ELDA DATE: 02/26/17 4. Chronic pain, on chronic narcotics. 5. Depression. 6. Anxiety. 7. Restless legs. 8. Bipolar disease. PAST SURGICAL HISTORY: 1. Appendectomy. 2. Partial gastrojejunostomy/Billroth-I procedure. 3. Back surgery. ALLERGIES: TO REGLAN AND GABAPENTIN. HOME MEDICATIONS: 1. Albuterol one to two puff inhalation q.6 hours. 2. Abilify 15 mg q.h.s. 3. Sinemet 25/100 mg one tablet t.i.d. 4. Dexilant 60 mg daily. 5. Erythromycin 250 mg q.i.d. 6. [place] 10/325 mg one tablet q.i.d. 7. Levothyroxine 75 mcg daily. 8. Amitiza 24 mcg b.i.d. 9. Meclizine 25 mg t.i.d. p.r.n. 10.Zofran 4 mg ODT q.4 hours p.r.n. 11.Protonix 40 mg b.i.d. 12.Zanaflex 4 mg b.i.d. 13.Topamax 50 mg daily. 14.Artane 2 mg t.i.d. SOCIAL HISTORY: Denies any tobacco, alcohol, or illicits. FAMILY MEDICAL HISTORY: Mother with diabetes and coronary artery disease. Father with diabetes. Siblings are otherwise healthy. LABS AND IMAGIN. White count is 10.4, hemoglobin is 12.1, hematocrit is 36.9, and platelet count is 512. 2. Sodium is 137, potassium 3.9, chloride 104, carbon dioxide 21, BUN 9, creatinine 1.30, glucose is 116, calcium is 9.5, protein is 7.5, albumin is 3.7, bilirubin is 0.6, ALT is 8, AST 11, and alkaline phosphatase is 111. 3. Urinalysis; spec gravity is 1.011. No evidence of any infection. 4. CT scan of the brain as I mentioned previously, is pending at the time of dictation. PHYSICAL EXAMINATION: VITAL SIGNS: Temperature is 97.1 degrees Fahrenheit, pulse is 118, respirations 22, saturating 100% on room air, and blood pressure 130/99. GENERAL: The patient is awake and alert, in no acute distress, resting comfortably. He is a well-developed, well-nourished, male. History And Physical [address] [address] NAME: SANA PAINTER JR : 63 STATUS : ADM IN [facility]#: [id number] AGE: 51 ADM/REG DATE : 02/26/17 MR#: [id number] REPORT SERV DATE: 02/27/17 DICTATED BY: KIMBERLY WEBB DATE: 02/26/17 REPORT STATUS : Draft TRANSCRIBED BY: ELDA DATE: 02/26/17 HEENT: Atraumatic and normocephalic. Slightly dry mucous membranes. Pupils are equal, round, reactive to light and accommodation. Extraocular eye movements are intact. No scleral icterus. NECK: No jugular venous distention. No carotid bruits. CARDIAC: Regular rate and rhythm. No murmurs, rubs, or gallops. Normal S1, S2. LUNGS: Clear to auscultation bilaterally. No wheezes, rhonchi, or rales. ABDOMEN: Soft, nontender, and nondistended with good bowel sounds. No rebound, guarding, or rigidity. EXTREMITIES: Warm and perfused. No cyanosis, clubbing, or edema. SKIN: Warm and dry. PSYCH: Affect appropriate. NEURO: Alert and orient x3. The patient has good pupillary afferent and efferent reflexes; however, he states that he is unable to count fingers at a short distance and states that he is unable to track. However, I do exhibit on casual observation good extraocular eye movements. Funduscopic exam performed by ER physician was reportedly unremarkable. Speech is normal. Gait not assessed. ASSESSMENT AND PLAN: Mr. Painter is a 51-year-old gentleman, who presents with intractable nausea, vomiting, as well as a few day history of blurry vision and vision loss. PROBLEM LIST: 1. Intractable nausea and vomiting. 2. Acute kidney injury and dehydration. 3. Vision loss. 4. History of peptic ulcer disease status post gastrojejunostomy. 5. History of duodenal and jejunal stenosis. PLAN: 1. Intractable nausea and vomiting. We will readmit the patient to the Hospitalist Service. Provide supportive care with antiemetics, pain control with IV fluids. We will consult the patient's primary waiter/waitress captain, Dr. Manns for assistance. 2. Vision loss. Unclear etiology as what this could be. CT scan of the brain is pending. We will consult Neurology as well as order an MRI for the morning. The patient states that it started when he was started on the erythromycin, therefore we will hold this overnight and see if that has any improvement. The patient may need a formal vision testing with Optometry and/or Ophthalmology pending results of neuro workup. 3. History of gastrojejunostomy with duodenal jejunal stenoses. Continue PPI b.i.d. as per plan. Again, consult GI for assistance. 4. DVT prophylaxis. Lovenox subcu. CODE STATUS: The patient wished to be full code. TONY/ELDA Kimberly Chavez History And Physical [address] [address] NAME: SANA PAINTER JR : 63 STATUS : ADM IN [facility]#: [id number] AGE: 51 ADM/REG DATE : 02/26/17 MR#: [id number] REPORT SERV DATE: 02/27/17 DICTATED BY: KIMBERLY WEBB DATE: 02/26/17 REPORT STATUS : Draft TRANSCRIBED BY: MODL DATE: 02/26/17 MD Roxann / [id number] CC: Jayme Walker MD Gregory Olds, MD
--- NOTE | ~2017-02-26 | DS ---
Discharge Summary [facility] [address] [place]. [address] NAME: SANA PAINTER JR : 63 STATUS : ADM IN PAT#: [id number] AGE: 51 ADM/REG DATE : 02/26/17 MR#: [id number] REPORT SERV DATE: 03/12/17 DICTATED BY: JOSE EDUARDO LOPEZ DATE: 03/12/17 REPORT STATUS : Draft TRANSCRIBED BY: MODL DATE: 03/12/17 ADMISSION DATE: 02/26/2017 DISCHARGE DATE: CURRENT HOSPITAL DIAGNOSES: 1. Jejunal stenosis, status post surgical correction. 2. Acute kidney injury, resolved. 3. Temporal vision loss, resolved. 4. Peptic ulcer disease. 5. Opioid-induced constipation. 6. Protein-calorie malnutrition. 7. Parkinson disease. 8. Bipolar disorder. CONSULTATIONS: Dr. Valle and Dr. Dockery. PROCEDURES: As listed in the interim summary. CURRENT PHYSICAL FINDINGS AND HISTORY OF PRESENT ILLNESS: Please see dictated H and P by Dr. Hackett as well as interim summary by Dr. Bryant on the . I took over the patient's care on the and will dictate to that point. The patient was post surgery at that time. He was receiving TPN and he had completed his neurologic workup. He was being titrated off IV pain medications and was tolerating well. On the , he began titrating off the TPN and started eating. On the , he was having no difficulties and ambulatory. On the , he was felt stable for discharge. DISPOSITION: He is discharged home. He will follow up with Dr. Dockery as directed. Home Health has been requested. MEDICATIONS: Abilify 15 at bedtime, Sinemet 25/100 four times daily from a previous t.i.d. dosing, Synthroid 75 one per day, Zyprexa 10 mg one per day, a new Rx Dexilant 60 one per day, Topamax 50 one per day, Artane 2 mg t.i.d., folic acid 1 mg daily, hydrocodone 10/325 q.i.d. p.r.n., ProAir inhaler q.6, Zofran 4 mg q.4 p.r.n., Zanaflex 4 mg t.i.d. p.r.n., Antivert 25 t.i.d. p.r.n., Amitiza 24 b.i.d. p.r.n. TLF/MODL Jose Eduardo Lopez M.D. / [id number] CC: Jose Eduardo Lopez M.D. Discharge Summary [address] [address] NAME: SANA PAINTER JR : 63 STATUS : ADM IN PAT#: [id number] AGE: 51 ADM/REG DATE : 02/26/17 MR#: [id number] REPORT SERV DATE: 03/12/17 DICTATED BY: JOSE EDUARDO LOPEZ DATE: 03/12/17 REPORT STATUS : Draft TRANSCRIBED BY: MODL DATE: 03/12/17 ROSINA COHEN
--- NOTE | ~2017-02-26 | IDS ---
Interim Discharge Summary [facility] [address] [place]. [address] NAME: SANA PAINTER JR : 63 STATUS : ADM IN [facility]#: [id number] AGE: 51 ADM/REG DATE : 02/26/17 MR#: [id number] REPORT SERV DATE: 03/09/17 DICTATED BY: REILLY BRYANT DATE: 03/09/17 REPORT STATUS : Draft TRANSCRIBED BY: MODL DATE: 03/09/17 ADMISSION DATE: 02/26/2017 DISCHARGE DATE: 03/08/2017 INTERIM DIAGNOSES: 1. Jejunal stenosis, status post this surgery on 03/05/2017, with laparotomy and distal gastrectomy, resection of efferent limb of gastrojejunal anastomosis, and Mary-en-Y gastric jejunostomy by Dr. Dockery. 2. Acute kidney injury. 3. Bilateral temporary vision loss, negative Neuro workup. 4. Peptic ulcer disease. 5. Opioid constipation. 6. Protein-calorie malnutrition, currently on TPN, secondary to underlying jejunal stenosis. 7. Parkinson's disease. 8. Thiamine and folate deficiency. 9. Bipolar disorder. 10.Restless legs syndrome. HOSPITAL COURSE: Please see H and P for complete details. HISTORY OF PRESENT ILLNESS: Briefly, Mr. Painter is a 51-year-old male with history of peptic ulcer disease, gastric outlet obstruction, and gastrojejunal anastomosis, who presents after having persistent nausea, vomiting, weakness, and resultant protein and calorie malnutrition. The patient was evaluated by Surgery. Due to patient's inability to tolerate p.o. safely, the patient was placed on TPN with a PICC line. The patient did have GERMAN with secondary to nausea and vomiting and decreased p.o. intake, this did show improvement after IV fluids, aggressive supportive treatment, and subsequent TPN. The patient was noted to be optimized and the energy began to improve. The patient had underwent surgery as described above by Dr. Dockery. Currently, he is postop day #3 with NG tube. He is currently still undergoing bowel regimen due to mild ileus. He has not had that challenge to GI tract with feeds currently. He is currently being monitored with daily labs. The patient has had improvement with ambulatory status and energy, and resolution of persistent nausea and vomiting. Incidentally, the patient did have bilateral vision loss in the presence of Parkinson's disease, and electrolyte and vitamin and mineral deficiencies. The patient was thought to have clinical symptoms of stroke, however, workup was essentially negative including MRI; and the patient did have resolution of visual loss. This was possibly secondary to volume versus electrolyte discrepancies. Currently, barriers to discharge are healing process, ability to transition from TPN safely and challenged for tube feeds versus feeding source outside of TPN. DDN/MODL Reilly Billingsley Interim Discharge Summary [address] [address] NAME: SANA PAINTER JR : 63 STATUS : ADM IN PAT#: [id number] AGE: 51 ADM/REG DATE : 02/26/17 MR#: [id number] REPORT SERV DATE: 03/09/17 DICTATED BY: REILLY BRYANT DATE: 03/09/17 REPORT STATUS : Draft TRANSCRIBED BY: MODL DATE: 03/09/17 MD Manny / [id number] CC: MD VICKI Norton LISA L
--- NOTE | ~2017-02-26 | CN ---
Consultation Report [facility] [address] [place]. [address] NAME: SANA PAINTER JR : 63 STATUS : ADM IN PAT#: [id number] AGE: 51 ADM/REG DATE : 02/26/17 MR#: [id number] REPORT SERV DATE: 03/04/17 DICTATED BY: JULIETA TYLER III DATE: 03/04/17 REPORT STATUS : Draft TRANSCRIBED BY: ELDA DATE: 03/04/17 DATE OF CONSULTATION: 03/04/2017 ADDENDUM: Mr. Painter is stable at this time. His vision has returned. He continues to have evidence for near complete gastric outlet obstruction. I have recommended surgery. Will schedule this for tomorrow for the patient. This will be a laparotomy, with resection of the involved obstructed proximal small bowel, which will likely involve resection of his previous gastrojejunostomy and new gastrojejunal anastomosis. The area of obstruction in the small bowel appeared to be about 6 cm distal to the gastrojejunal anastomosis. Therefore, we were able to resect this without revising the gastrojejunal anastomosis and will do so. However, because of the likelihood of involvement of the mesentery to this portion of the small bowel with the mesentery to the portion of the small bowel involved with this anastomosis, it was likely that revision of the gastrojejunostomy with distal gastrectomy will be required. In this event, we may reconstruct this with a Mary-en-Y gastrojejunostomy, may also place a jejunal feeding tube. This procedure, the risks, benefits, and alternatives, including not limited to the risk for bleeding, infection, enterotomy, injury to abdominal structure, postop small bowel obstruction, ileus, incisional hernia, dehiscence, anastomotic leak, resulting in peritonitis, sepsis, and , recurrent gastric outlet obstruction or prolonged gastroparesis and unforeseen complications including deep venous thrombosis, pulmonary embolus, myocardial infarction, stroke, pneumonia, anesthetic complications, and , have been fully and completely explained to the patient's family prior to surgery. The fact that this is a major operation with risk for major morbidity and mortality has been explained, the expected length of recovery has been explained. The patient had questions, which were answered. He clearly understands the risks and agrees to the surgery as planned. EVY/ELDA Julieta Tyler III, M.D. / [id number] CC: MD ROSINA NortonDIAS
--- NOTE | ~2017-02-26 | CN ---
Consultation Report [facility] [address] [place]. 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 HISTORY OF PRESENT ILLNESS: Mr. Painter is a 51-year-old man, who has had a progressive history over at least the last 50 days of nausea, vomiting, weight loss with at least a 50 to 60-pound weight loss during this time. He had presented to the [facility] where he was noted to have a narrowing just distal to his anastomosis, however, nothing apparently was done at that time. He was seen by me in the office and then directly admitted. At that time, he underwent an EGD here where he was noted to have narrowing distal to the anastomosis, this was repeated two days later. The patient reports, he initially did better approximately day and a half following this, but he believes it was mostly secondary to antiemetics administered in the hospital and after returning home, his symptoms returned essentially the same level they did before and he continued to lose weight. He also has had some vision loss and that is currently being worked up by Anesthesia. Symptoms are fairly moderate to severe and are essentially worsening as associated weight loss with this. PAST MEDICAL HISTORY: The patient's past medical history includes depression, Parkinson disease, bipolar disease. MEDICATIONS: His home meds included albuterol, Abilify, carbidopa, levodopa, Dexilant, erythromycin, hydrocodone, levothyroxine, lubiprostone, meclizine, ondansetron, pantoprazole, tizanidine, Topamax, Artane. ALLERGIES: HE IS ALLERGIC TO REGLAN. SOCIAL HISTORY: He does not smoke. He does not drink. FAMILY HISTORY: Includes a gastric ulcer in his father and leukemia in one of his children. REVIEW OF SYSTEMS: Notable for fatigue, decreased appetite, weight loss, depression, anxiety, stress, some shortness of breath, abdominal pain, heartburn, belching gas, bloating, constipation. Otherwise a 14-point review of systems reviewed and otherwise negative unless mentioned in the HPI. PHYSICAL EXAMINATION: VITAL SIGNS: The temperature at 97.8, heart rate 80, blood pressure 141/78, O2 sat was 97% on room air. GENERAL: The patient was lying in bed, in no apparent distress. HEENT: Head is atraumatic and normocephalic. Oropharynx revealed moist mucous membranes, Consultation Report [address] [address] NAME: SANA PAINTER JR : 63 STATUS : ADM IN PAT#: [id number] AGE: 51 ADM/REG DATE : 02/26/17 MR#: [id number] REPORT SERV DATE: 02/28/17 DICTATED BY: TAD VALLE DATE: 02/27/17 REPORT STATUS : Draft TRANSCRIBED BY: ELDA DATE: 02/27/17 clear. NECK: Revealed no crepitus or thyromegaly. LUNGS: Clear. CARDIOVASCULAR: Revealed regular rhythm. ABDOMEN: Obese, but was nontender, not significantly distended. EXTREMITIES: Revealed no clubbing, cyanosis, or edema. NEUROLOGIC: He does have a tremor, but no asterixis. IMPRESSION: Persistent nausea, vomiting, status post with a history of antrectomy with gastrojejunostomy suspected Billroth I based upon most recent report now with intractable nausea and vomiting and significant weight loss associated with the jejunal stricture does not respond to conservative management. At this point, given the patient's severity of his symptoms and significant weight loss, I believe surgical management will be the best option at this point, therefore, we will consult Surgery and we will continue the neurological workup for his vision loss. Thank you for allowing me to evaluate the patient. Please do not hesitate to contact me should you have any further concerns or questions. GO/MODL Tad Valle MD / [id number] CC: MD VICKI Mccormack II, LISA L
--- NOTE | ~2017-02-26 | CN ---
Consultation Report [facility] [address] [place]. [address] NAME: SANA PAINTER JR : 63 STATUS : ADM IN PAT#: [id number] AGE: 51 ADM/REG DATE : 02/26/17 MR#: [id number] REPORT SERV DATE: 02/27/17 DICTATED BY: DATE: REPORT STATUS : Draft TRANSCRIBED BY: MODL DATE: 02/27/17 NEUROLOGY CONSULTATION DATE OF CONSULTATION: 02/27/2017 REASON FOR CONSULT: Vision loss. HISTORY OF PRESENT ILLNESS: This is a 51-year-old male recently hospitalized for intractable nausea, vomiting, as well as the concern for weight loss with the patient recently discharged from the hospital. Afterwards, the patient was noted to have recurrent nausea and vomiting. As a result, the patient presented to [facility]. The patient also complains of vision loss, apparently been ongoing for the past [id number] days which the patient says was associated with starting of a new antibiotic. It is unclear if the patient has ever mentioned vision loss to the patient's hospitalist during the hospital stay. The patient reports the patient has complete vision loss in bilateral eyes, only able to see shadows, has not had any significant symptom worsening or improving. Complains of generalized weakness, but otherwise complaints of numbness in bilateral lower extremity after weight loss and denies any other facial numbness and denies any dysarthria, dysphagia, or language difficulties. The patient again denies similar symptoms in the past other than nausea and vomiting. Denies any other recent illness. The patient does have change in medication from previous hospitalization, especially with starting of a new antibiotic. No other changes in medication was noted. REVIEW OF SYSTEMS: Negative except for those mentioned in the HPI. PAST MEDICAL HISTORY: Significant for gastroesophageal reflux disease, peptic ulcer as well as gastrojejunostomy, history of Parkinson's disease, hypothyroidism, chronic pain as well as depression and anxiety, restless legs, and bipolar disorder. ALLERGIES: THE PATIENT WAS NOTED TO HAVE ALLERGY TO REGLAN AND GABAPENTIN. SOCIAL HISTORY: Denies tobacco, alcohol, or recreational drug usage. FAMILY HISTORY: Significant for coronary artery disease and diabetes. HOME MEDICATIONS: The patient's home medications consist of albuterol; Abilify; Sinemet; Dexilant; erythromycin; [place]; levothyroxine; Amitiza; meclizine; Zofran; Protonix; Zanaflex; Topamax; and Artane. REVIEW OF SYSTEMS: Negative except for those mentioned in the HPI. PHYSICAL EXAMINATION: Consultation Report [place] [address] [place]. [address] NAME: SANA PAINTER JR : 63 STATUS : ADM IN PAT#: [id number] AGE: 51 ADM/REG DATE : 02/26/17 MR#: [id number] REPORT SERV DATE: 02/27/17 DICTATED BY: DATE: REPORT STATUS : Draft TRANSCRIBED BY: MODL DATE: 02/27/17 VITAL SIGNS: Overnight patient was noted to have vital signs with T-max of 98.5, heart rate of 83 to 90, respirations of 18 to 22, and blood pressure of 140 to 148 over 88 to 95. GENERAL: The patient is well developed, well nourished, in no acute distress. CARDIOVASCULAR: Regular rate and rhythm. No carotid bruits were otherwise auscultated. PULMONARY: Examination was clear to auscultation bilaterally. NEUROLOGICAL: Generally, the patient is alert and oriented to person, place, year, and month. Follows simple and two-step commands. No dysarthria. No aphasia was noted. Intact registration and recall. Cranial nerves 2 through 12, pupils equal, round, and reactive to light. The patient was noted to have intact horizontal eye movement as well as vertical eye movement at the time of evaluation. Oculocephalic maneuver. The patient demonstrated no significant Doll's eyes effects, otherwise the patient reports symmetrical facial sensation. Symmetrical facial expression was noted. Midline tongue was noted. Normal hearing was noted. The patient denies able to see fingers and denies able to see anything on examination. Funduscopic examination demonstrated no significant optic nerve abnormality at the time of evaluation. No significant papilledema was otherwise seen. The patient demonstrated giveaway weakness on bilateral upper extremity as well as bilateral lower extremity, otherwise, no pronator drift was visualized. The patient demonstrated no myoclonus or asterixis. At the time of evaluation, deep tendon reflex was attenuated throughout, was noted to have symmetric sensation bilaterally. The patient is able to point to the nose with bilateral finger but reports unable to visualize finger for [id number] examination. Gait was not evaluated secondary to vision loss as well as weakness. LABORATORY STUDIES: Demonstrated white blood cell count of 7.1, hemoglobin of 10.2, hematocrit of 31.6, and platelet count of 399. Chemistry panel: Sodium 139, potassium 3.8, chloride 108, bicarb 23, BUN of 7, creatinine 0.99, glucose 107, and calcium of 8.5. At the time of evaluation, the patient was noted to have CT scan of the brain, demonstrated no acute process. IMPRESSION: 1. Bilateral vision loss. Etiologies unknown. Symptom has been ongoing for the past 4-to-5 days. Reports only able to see shadows. No similar events in the past. 2. The patient, on examination, does demonstrate giveaway weakness in all extremities. We will perform MRI of the brain as well as laboratory studies, may consider lumbar puncture if no other etiology was found, otherwise may also consider ophthalmology followup and evaluation if no other etiology for vision loss can be found. RECOMMENDATION: 1. MRI of the brain without contrast. 2. Thiamine, vitamin B12, folate, TSH, free T4, labs. 3. May consider lumbar puncture. [facility]/ELDA Consultation Report [facility] [address] [place]. [address] NAME: SANA PAINTER JR : 63 STATUS : ADM IN [facility]#: [id number] AGE: 51 ADM/REG DATE : 02/26/17 MR#: [id number] REPORT SERV DATE: 02/27/17 DICTATED BY: DATE: REPORT STATUS : Draft TRANSCRIBED BY: ELDA DATE: 02/27/17 Maxi Frank MD / [id number] CC: MD ROSINA Mccormack II
--- NOTE | ~2017-02-26 | CN ---
Consultation Report [facility] [address] [facility] [address] [place]. [address] NAME: SANA PAINTER JR : 63 STATUS : ADM IN PAT#: [id number] AGE: 51 ADM/REG DATE : 02/26/17 MR#: [id number] REPORT SERV DATE: 03/02/17 DICTATED BY: JULIETA TYLER III DATE: 03/02/17 REPORT STATUS : Draft TRANSCRIBED BY: MODL DATE: 03/02/17 CONSULTATION DATE OF CONSULTATION: 02/28/2017 REASON FOR CONSULTATION: 1. Gastric outlet obstruction with obstruction of the jejunal efferent limb of gastrojejunal anastomosis. 2. Recommendation regarding surgical management. HISTORY OF PRESENT ILLNESS: I am asked to see this 51-year-old male who was hospitalized for the above reasons. The patient was admitted to the hospital emergently on 02/26/2017 with intractable nausea and vomiting. Prior to this, the patient had been hospitalized, admitted on 02/16/2017 with the similar problems. The complains nausea, vomiting, and weight loss. He denies any abdominal pain. The patient has a previous history of a distal gastrectomy with Billroth II anastomosis. His workup shows radiographic and endoscopic evidence for obstruction of the efferent jejunal limb of his anastomosis. On this admission, the patient also complained of sudden onset of near vision loss, with near complete loss of his vision. He states this began four to five days prior to admission. The patient complains of generalized weakness and profound weight loss. Approximately for two months he has had nausea, vomiting, and at least 50 pounds to 60 pounds weight loss during this time. Initially presented to [facility], where workup showed evidence for narrowing of the jejunum just distal to his anastomosis. Nothing was done at that time. The patient was then seen by Dr. Valle, and an EGD was performed which showed narrowing in the distal to the anastomosis. An endoscopic dilatation was performed, and the patient initially improved, but the symptoms returned. He is now admitted to the hospital with these complaints. PAST MEDICAL HISTORY: 1. History of depression. 2. History of Parkinson's disease. 3. History of bipolar disorder. 4. Previous history of partial gastrectomy for benign disease. 5. Bronchitis. 6. Hypothyroidism. 7. Hyperlipidemia. 8. Restless legs syndrome. Consultation Report [facility] [address] [facility] [place]. [address] NAME: SANA PAINTER JR : 63 STATUS : ADM IN PAT#: [id number] AGE: 51 ADM/REG DATE : 02/26/17 MR#: [id number] REPORT SERV DATE: 03/02/17 DICTATED BY: JULIETA TYLER III DATE: 03/02/17 REPORT STATUS : Draft TRANSCRIBED BY: ELDA DATE: 03/02/17 PAST SURGICAL HISTORY: Includes partial gastrectomy and appendectomy. ALLERGIES: NONE. SOCIAL HISTORY: The patient is . He has two sons. He uses smokeless tobacco. No history of alcohol use. MEDICATIONS: As per the medication list. These include albuterol, Abilify, Sinemet, Dexilant, erythromycin, [place], levothyroxine, Amitiza, meclizine, Zofran, Protonix, Zanaflex, Topamax, and Artane. REVIEW OF SYSTEMS: Otherwise unremarkable. FAMILY HISTORY: Positive for coronary artery disease and diabetes. PHYSICAL EXAMINATION: GENERAL: This is a male, in no acute distress. He is somewhat obese. He is alert and oriented x3. VITAL SIGNS: Blood pressure 142/86, temperature 97.9, and pulse 80. HEENT: Unremarkable. Cranial nerves 2 through 12 are normal. LUNGS: Clear. CARDIAC: Normal. ABDOMEN: Soft and nontender. No masses. EXTREMITIES: Normal with no edema. LABORATORY DATA: White blood cell count is normal at 7.3, hematocrit 31. Electrolytes are unremarkable. Serum albumin is 3.4. Prealbumin is low at 18.3. Panendoscopy was performed by Dr. Fragoso on 02/17/2017, showed evidence for esophagitis. There is noted to be evidence of a previous antrectomy. There was some inflammation of the anastomosis. There is noted to be a benign-appearing intrinsic stenosis in the jejunum just distal to the anastomosis. The scope was passed through this with mild resistance. This was dilated. It should be noted the patient's symptoms returned. Repeat endoscopy was performed by Dr. Leal on 02/19/2017 showed the same stricture. Upper GI series performed on 02/18/2017 which I reviewed, shows mild irregularity at the gastrojejunal anastomosis. There is noted to be a proximal jejunum running in a vertical fashion 8 cm beyond this until the segment about 5 cm in length which was strictured and narrowed with delayed passage of contrast. ASSESSMENT: 1. 51-year-old male with chronic and severe gastric outlet obstruction secondary to apparent stenosis or stricture of the proximal portion of the efferent limb of the jejunum. This had been unresponsive to endoscopic dilatation. 2. Severe weight loss and malnutrition related to #1. 3. History of previous gastrectomy with Billroth II anastomosis apparently for benign Consultation Report [place] [address] [place]. [address] NAME: SANA PAINTER JR : 63 STATUS : ADM IN [facility]#: [id number] AGE: 51 ADM/REG DATE : 02/26/17 MR#: [id number] REPORT SERV DATE: 03/02/17 DICTATED BY: JULIETA TYLER III DATE: 03/02/17 REPORT STATUS : Draft TRANSCRIBED BY: ELDA DATE: 03/02/17 ulcer disease. 4. Parkinson's disease. 5. Bipolar disorder. 6. Hypothyroidism. 7. Gastroesophageal reflux disease. 8. Recent acute vision loss of unclear etiology. 9. Restless legs syndrome. 10.Chronic pain requiring chronic narcotics. PLAN: The patient is stable at this time. He is not able to tolerate any amount of solid or liquid food orally. I have recommended to PICC line for TPN. We will begin the patient on TPN for nutritional support prior to the surgical intervention which will be required based on the patient failed to respond to nonoperative treatment. In the meantime, workup regarding his vision loss is underway by Neurology. MRI of the brain is pending. Once he has been cleared by Neurology regarding his vision loss, we will schedule the patient for surgery, hopefully later this week. This will be a laparotomy with resection of the involved portion of the jejunum, possible resection and revision of the gastrojejunostomy. This will be a major procedure with risk for major morbidity and mortality. The procedure risks, benefits, and alternatives, including but not limited to the risk for bleeding, infection, enterotomy, injury to any abdominal structure, postop small bowel obstruction or ileus, incisional hernia, dehiscence, anastomotic leak resulting in peritonitis, sepsis, and , gastroparesis, recurrent gastric outlet obstruction, the need possibly for resection of the gastrojejunal anastomosis and revision of it versus resection of the jejunum only, and unforeseen complications including deep venous thrombosis, pulmonary embolus, myocardial infarction, stroke, pneumonia, and have been fully and completely explained to the patient and his family prior to the surgery. The fact that this is a major operation with risk for major morbidity and mortality has been explained. The expected length of recovery has been explained. The patient had questions, which were answered. He clearly understands the risks and agrees to the surgery as planned. RHJ/MODL Julieta Tyler III, M.D. / [id number] CC: MD ROSINA Mccormack II
[2017-02-26 18:49] LABS: BASOPHILS 0.4 %; BASOPHILS ABSOLUTE 0.04 10/3/uL (0.0-0.16); EOSINOPHILS 0.3 %; EOSINOPHILS ABSOLUTE 0.03 10/3/uL (0.0-0.53); HEMATOCRIT 36.9 % (40.0-51.0); HEMOGLOBIN 12.1 g/dL (13.6-17.8); IMMATURE GRANULOCYTES 0.2 %; IMMATURE GRANULOCYTES ABSOLUTE 0.02 10/3/uL (0.0-0.11); LYMPHOCYTES 17.4 %; MEAN CORPUS HGB CONC 32.8 g/dL (32.0-36.0); MEAN CORPUSCULAR HEMOGLOB 22.7 pg (26.0-34.0); MEAN CORPUSCULAR VOLUME 69.4 fL (80-100); MEAN PLATELET VOLUME 10.1 fL (9.2-13.0); MONOCYTES 8.5 %; MONOCYTES ABSOLUTE 0.88 10/3/uL (0.21-1.20); NEUTROPHILS 73.2 %; RBC DISTRIBUTION WIDTH 20.1 % (12.0-16.0); RED CELL COUNT 5.32 10/6/uL (4.7-6.1)
[2017-02-26 18:55] LABS: ER CBC TAT 0 Hrs 09 Mins; MANUAL DIFF NO %; PLATELET COUNT 512 10/3/uL (150-400); WHITE BLOOD CELLS 10.4 10/3/uL (4.5-10.5)
[~2017-02-26 18:59] MED LIST: ABILIFY15 PO; ART2 PO; BISR PR; ERY-TAB250 MG PO; KAPIDEX60 MG PO; MCZ25 PO; MOVANTIK25 MG PO; NORCO1 TAB PO; PROTONIX PO; REG PO; SIN25 PO; T PO; TOPAMAX50 MG PO; UNITHROID75 MCG PO; VOLT75 PO; ZANAFLEX 4 MG TA4 MG PO; ZOFRAN ODT4 MG PO
[2017-02-26 19:05] LABS: ALBUMIN 3.7 G/DL (3.5-5.0); ALKALINE PHOSPHATASE 111 U/L (45-117); BUN (BLOOD UREA NITROGEN) 9 MG/DL (6-23); CALCIUM, SERUM 9.5 MG/DL (8.5-10.4); CHLORIDE, SERUM 104 MMOL/L (96-112); GFR AFRICAN AMERICAN 73 ML/MIN (>=60); GFR NON AFRICAN AMERICAN 63 ML/MIN (>=60); GLOBULIN 3.8 G/DL (2.5-4.1); GLUCOSE, SERUM 116 MG/DL (60-99); POTASSIUM, SERUM 3.9 MMOL/L (3.5-5.3); SGOT(AST) 8 U/L (5-40); SGPT(ALT) 11 U/L (5-65); SODIUM, SERUM 137 MMOL/L (135-148); TOTAL BILIRUBIN 0.6 MG/DL (0-1.2); TOTAL PROTEIN 7.5 G/DL (6.0-8.5)
[2017-02-26 19:06] LABS: CO2 (CARBON DIOXIDE) 21 MMOL/L (24-34)
[2017-02-26 19:10] LABS: PLATELET ESTIMATE SLT INC (ADEQUATE)
[2017-02-26 19:53] LABS: ASCORBIC ACID (UR NOT ORDER) NEG (NEG); BILIRUBIN, URINE NEGATIVE (NEG); ER URINALYSIS TAT 0 Hrs 11 Mins; KETONE, URINE NEGATIVE (NEG); LEUKOCYTE ESTERASE(NOT OR NEG (NEG); NITRITE (URINE) NEG (NEG); WBC (NOT ORDERED) (RFLEX) 1 (0-5)
[2017-02-26] MEDS ORDERED: AMITIZA24 PO (20:44)
[2017-02-26] MEDS ORDERED: SYN075 PO (20:47)
[2017-02-26] MEDS ORDERED: KAPIDEX60 MG PO (20:49)
[2017-02-26] MEDS ORDERED: ABILIFY15 PO (20:50)
[2017-02-26] MEDS ORDERED: PROAIR HFA INH (20:51)
[2017-02-26 23:56] LABS: PHOSPHORUS, SERUM 3.5 MG/DL (2.5-4.5)
[2017-02-27 04:37] LABS: BASOPHILS 0.7 %; BASOPHILS ABSOLUTE 0.05 10/3/uL (0.0-0.16); EOSINOPHILS 1.4 %; HEMATOCRIT 31.6 % (40.0-51.0); HEMOGLOBIN 10.2 g/dL (13.6-17.8); IMMATURE GRANULOCYTES 0.3 %; IMMATURE GRANULOCYTES ABSOLUTE 0.02 10/3/uL (0.0-0.11); LYMPHOCYTES 31.3 %; LYMPHOCYTES ABSOLUTE 2.21 10/3/uL (0.67-4.30); MANUAL DIFF NO %; MEAN CORPUS HGB CONC 32.3 g/dL (32.0-36.0); MEAN CORPUSCULAR HEMOGLOB 22.7 pg (26.0-34.0); MEAN CORPUSCULAR VOLUME 70.4 fL (80-100); MEAN PLATELET VOLUME 9.7 fL (9.2-13.0); MONOCYTES 9.5 %; MONOCYTES ABSOLUTE 0.67 10/3/uL (0.21-1.20); NEUTROPHILS 56.8 %; PLATELET COUNT 399 10/3/uL (150-400); RBC DISTRIBUTION WIDTH 20.2 % (12.0-16.0); RED CELL COUNT 4.49 10/6/uL (4.7-6.1); WHITE BLOOD CELLS 7.1 10/3/uL (4.5-10.5)
[2017-02-27 04:50] LABS: BUN (BLOOD UREA NITROGEN) 7 MG/DL (6-23); CHLORIDE, SERUM 108 MMOL/L (96-112); CO2 (CARBON DIOXIDE) 23 MMOL/L (24-34); CREATININE 0.99 MG/DL (0.70-1.30); GFR AFRICAN AMERICAN 101 ML/MIN (>=60); GFR NON AFRICAN AMERICAN 87 ML/MIN (>=60); GLUCOSE, SERUM 107 MG/DL (60-99); POTASSIUM, SERUM 3.8 MMOL/L (3.5-5.3); SODIUM, SERUM 139 MMOL/L (135-148)
[2017-02-27 04:51] LABS: CALCIUM, SERUM 8.5 MG/DL (8.5-10.4)
[2017-02-27 12:02] LABS: FOLATE 4.8 NG/ML (>5.2); FREE T4 1.19 NG/DL (0.76-1.46); ULTRASENSITIVE TSH 1.31 MCIU/ML (0.358-3.740)
[2017-02-28 05:27] LABS: BASOPHILS ABSOLUTE 0.06 10/3/uL (0.0-0.16); EOSINOPHILS 2.9 %; EOSINOPHILS ABSOLUTE 0.17 10/3/uL (0.0-0.53); HEMATOCRIT 30.4 % (40.0-51.0); HEMOGLOBIN 9.5 g/dL (13.6-17.8); IMMATURE GRANULOCYTES 0.2 %; IMMATURE GRANULOCYTES ABSOLUTE 0.01 10/3/uL (0.0-0.11); LYMPHOCYTES 32.6 %; LYMPHOCYTES ABSOLUTE 1.94 10/3/uL (0.67-4.30); MEAN CORPUS HGB CONC 31.3 g/dL (32.0-36.0); MEAN CORPUSCULAR HEMOGLOB 22.7 pg (26.0-34.0); MEAN PLATELET VOLUME 9.8 fL (9.2-13.0); MONOCYTES 7.6 %; MONOCYTES ABSOLUTE 0.45 10/3/uL (0.21-1.20); NEUTROPHILS 55.7 %; NEUTROPHILS ABSOLUTE 3.32 10/3/uL (2.02-8.40); PLATELET COUNT 342 10/3/uL (150-400); RBC DISTRIBUTION WIDTH 20.3 % (12.0-16.0); RED CELL COUNT 4.19 10/6/uL (4.7-6.1)
[2017-02-28 05:30] LABS: MANUAL DIFF NO %; MEAN CORPUSCULAR VOLUME 72.6 fL (80-100)
[2017-02-28 05:45] LABS: BUN (BLOOD UREA NITROGEN) 5 MG/DL (6-23); CALCIUM, SERUM 8.4 MG/DL (8.5-10.4); CHLORIDE, SERUM 111 MMOL/L (96-112); CO2 (CARBON DIOXIDE) 20 MMOL/L (24-34); CREATININE 0.77 MG/DL (0.70-1.30); GFR AFRICAN AMERICAN 121 ML/MIN (>=60); GFR NON AFRICAN AMERICAN 104 ML/MIN (>=60); POTASSIUM, SERUM 3.5 MMOL/L (3.5-5.3); SODIUM, SERUM 141 MMOL/L (135-148)
[2017-02-28 05:49] LABS: GLUCOSE, SERUM 80 MG/DL (60-99)
[2017-02-28 09:11] LABS: PHOSPHORUS, SERUM 3.3 MG/DL (2.5-4.5); PREALBUMIN 18.3 MG/DL (17.0-43.0)
[2017-03-01 05:19] LABS: BASOPHILS 0.7 %; BASOPHILS ABSOLUTE 0.05 10/3/uL (0.0-0.16); EOSINOPHILS 2.2 %; EOSINOPHILS ABSOLUTE 0.16 10/3/uL (0.0-0.53); HEMATOCRIT 31.3 % (40.0-51.0); HEMOGLOBIN 9.9 g/dL (13.6-17.8); IMMATURE GRANULOCYTES 0.4 %; IMMATURE GRANULOCYTES ABSOLUTE 0.03 10/3/uL (0.0-0.11); LYMPHOCYTES 29.9 %; LYMPHOCYTES ABSOLUTE 2.17 10/3/uL (0.67-4.30); MEAN CORPUS HGB CONC 31.6 g/dL (32.0-36.0); MEAN CORPUSCULAR HEMOGLOB 23.1 pg (26.0-34.0); MEAN PLATELET VOLUME 9.4 fL (9.2-13.0); MONOCYTES 9.5 %; MONOCYTES ABSOLUTE 0.69 10/3/uL (0.21-1.20); NEUTROPHILS 57.3 %; NEUTROPHILS ABSOLUTE 4.16 10/3/uL (2.02-8.40); PLATELET COUNT 372 10/3/uL (150-400); RBC DISTRIBUTION WIDTH 20.1 % (12.0-16.0); RED CELL COUNT 4.29 10/6/uL (4.7-6.1); WHITE BLOOD CELLS 7.3 10/3/uL (4.5-10.5)
[2017-03-01 05:24] LABS: MANUAL DIFF NO %
[2017-03-01 05:36] LABS: BUN (BLOOD UREA NITROGEN) 10 MG/DL (6-23); CALCIUM, SERUM 8.6 MG/DL (8.5-10.4); CHLORIDE, SERUM 110 MMOL/L (96-112); CO2 (CARBON DIOXIDE) 21 MMOL/L (24-34); CREATININE 0.74 MG/DL (0.70-1.30); GFR AFRICAN AMERICAN 123 ML/MIN (>=60); GFR NON AFRICAN AMERICAN 106 ML/MIN (>=60); GLUCOSE, SERUM 91 MG/DL (60-99); PHOSPHORUS, SERUM 3.3 MG/DL (2.5-4.5); POTASSIUM, SERUM 3.9 MMOL/L (3.5-5.3); SODIUM, SERUM 139 MMOL/L (135-148)
[2017-03-01 19:05] LABS: THIAMINE <1.5 nmol/L (()); THIAMINE MONOPHOSPHATE <0.5 nmol/L (())
[2017-03-02 06:07] LABS: BASOPHILS 0.8 %; BASOPHILS ABSOLUTE 0.06 10/3/uL (0.0-0.16); EOSINOPHILS 2.5 %; EOSINOPHILS ABSOLUTE 0.18 10/3/uL (0.0-0.53); HEMATOCRIT 31.5 % (40.0-51.0); IMMATURE GRANULOCYTES 0.4 %; IMMATURE GRANULOCYTES ABSOLUTE 0.03 10/3/uL (0.0-0.11); LYMPHOCYTES 27.3 %; MEAN CORPUS HGB CONC 31.7 g/dL (32.0-36.0); MEAN CORPUSCULAR HEMOGLOB 22.8 pg (26.0-34.0); MEAN CORPUSCULAR VOLUME 71.9 fL (80-100); MEAN PLATELET VOLUME 9.7 fL (9.2-13.0); MONOCYTES 8.1 %; MONOCYTES ABSOLUTE 0.59 10/3/uL (0.21-1.20); NEUTROPHILS 60.9 %; NEUTROPHILS ABSOLUTE 4.46 10/3/uL (2.02-8.40); PLATELET COUNT 391 10/3/uL (150-400); RBC DISTRIBUTION WIDTH 20.3 % (12.0-16.0); RED CELL COUNT 4.38 10/6/uL (4.7-6.1); WHITE BLOOD CELLS 7.3 10/3/uL (4.5-10.5)
[2017-03-02 06:12] LABS: CALCIUM, SERUM 8.6 MG/DL (8.5-10.4); CHLORIDE, SERUM 111 MMOL/L (96-112); CO2 (CARBON DIOXIDE) 21 MMOL/L (24-34); CREATININE 0.62 MG/DL (0.70-1.30); GFR AFRICAN AMERICAN 132 ML/MIN (>=60); GFR NON AFRICAN AMERICAN 114 ML/MIN (>=60); GLUCOSE, SERUM 106 MG/DL (60-99); PHOSPHORUS, SERUM 3.5 MG/DL (2.5-4.5); POTASSIUM, SERUM 4.3 MMOL/L (3.5-5.3); SODIUM, SERUM 144 MMOL/L (135-148)
[2017-03-02 06:14] LABS: MANUAL DIFF NO %
[2017-03-02 06:21] LABS: BUN (BLOOD UREA NITROGEN) 18 MG/DL (6-23)
[2017-03-03 06:51] LABS: BUN (BLOOD UREA NITROGEN) 17 MG/DL (6-23); CALCIUM, SERUM 8.5 MG/DL (8.5-10.4); CHLORIDE, SERUM 111 MMOL/L (96-112); CO2 (CARBON DIOXIDE) 24 MMOL/L (24-34); GFR AFRICAN AMERICAN 134 ML/MIN (>=60); GFR NON AFRICAN AMERICAN 116 ML/MIN (>=60); GLUCOSE, SERUM 97 MG/DL (60-99); PHOSPHORUS, SERUM 3.6 MG/DL (2.5-4.5); POTASSIUM, SERUM 3.8 MMOL/L (3.5-5.3); SODIUM, SERUM 143 MMOL/L (135-148)
[2017-03-03 07:32] LABS: BASOPHILS 0.7 %; BASOPHILS ABSOLUTE 0.05 10/3/uL (0.0-0.16); EOSINOPHILS 2.7 %; HEMATOCRIT 32.6 % (40.0-51.0); HEMOGLOBIN 10.3 g/dL (13.6-17.8); IMMATURE GRANULOCYTES 0.3 %; IMMATURE GRANULOCYTES ABSOLUTE 0.02 10/3/uL (0.0-0.11); LYMPHOCYTES ABSOLUTE 2.01 10/3/uL (0.67-4.30); MANUAL DIFF NO %; MEAN CORPUS HGB CONC 31.6 g/dL (32.0-36.0); MEAN CORPUSCULAR HEMOGLOB 22.9 pg (26.0-34.0); MEAN CORPUSCULAR VOLUME 72.6 fL (80-100); MEAN PLATELET VOLUME 9.4 fL (9.2-13.0); MONOCYTES 9.1 %; MONOCYTES ABSOLUTE 0.68 10/3/uL (0.21-1.20); NEUTROPHILS 60.2 %; NEUTROPHILS ABSOLUTE 4.49 10/3/uL (2.02-8.40); PLATELET COUNT 393 10/3/uL (150-400); RBC DISTRIBUTION WIDTH 20.5 % (12.0-16.0); RED CELL COUNT 4.49 10/6/uL (4.7-6.1); WHITE BLOOD CELLS 7.5 10/3/uL (4.5-10.5)
[2017-03-03 16:36] LABS: C-REACTIVE PROTEIN 3.3 MG/L (<8.0); CHOL/HDL RATIO(NOT ORDER) 5.5 (0-5)
[2017-03-04 06:54] LABS: BASOPHILS 0.6 %; BASOPHILS ABSOLUTE 0.05 10/3/uL (0.0-0.16); EOSINOPHILS ABSOLUTE 0.26 10/3/uL (0.0-0.53); HEMOGLOBIN 10.2 g/dL (13.6-17.8); IMMATURE GRANULOCYTES 0.2 %; IMMATURE GRANULOCYTES ABSOLUTE 0.02 10/3/uL (0.0-0.11); LYMPHOCYTES 21.5 %; LYMPHOCYTES ABSOLUTE 1.85 10/3/uL (0.67-4.30); MANUAL DIFF NO %; MEAN CORPUS HGB CONC 31.9 g/dL (32.0-36.0); MEAN CORPUSCULAR HEMOGLOB 23.1 pg (26.0-34.0); MEAN CORPUSCULAR VOLUME 72.4 fL (80-100); MEAN PLATELET VOLUME 9.6 fL (9.2-13.0); MONOCYTES ABSOLUTE 0.69 10/3/uL (0.21-1.20); NEUTROPHILS 66.7 %; NEUTROPHILS ABSOLUTE 5.75 10/3/uL (2.02-8.40); PLATELET COUNT 375 10/3/uL (150-400); RED CELL COUNT 4.42 10/6/uL (4.7-6.1); WHITE BLOOD CELLS 8.6 10/3/uL (4.5-10.5)
[2017-03-04 07:08] LABS: BUN (BLOOD UREA NITROGEN) 14 MG/DL (6-23); CALCIUM, SERUM 8.8 MG/DL (8.5-10.4); CHLORIDE, SERUM 112 MMOL/L (96-112); CO2 (CARBON DIOXIDE) 26 MMOL/L (24-34); CREATININE 0.58 MG/DL (0.70-1.30); GFR AFRICAN AMERICAN 136 ML/MIN (>=60); GFR NON AFRICAN AMERICAN 117 ML/MIN (>=60); GLUCOSE, SERUM 102 MG/DL (60-99); PHOSPHORUS, SERUM 3.8 MG/DL (2.5-4.5); POTASSIUM, SERUM 4.1 MMOL/L (3.5-5.3); SODIUM, SERUM 144 MMOL/L (135-148)
[2017-03-04 10:20] LABS: ANTI SS-A NEGATIVE (NEGATIVE); ANTI SS-B NEGATIVE (NEGATIVE)
[2017-03-04 13:58] LABS: ANA TITER <1:40 TITER
[2017-03-05 07:21] LABS: BUN (BLOOD UREA NITROGEN) 14 MG/DL (6-23); CALCIUM, SERUM 8.5 MG/DL (8.5-10.4); CHLORIDE, SERUM 109 MMOL/L (96-112); CO2 (CARBON DIOXIDE) 24 MMOL/L (24-34); CREATININE 0.52 MG/DL (0.70-1.30); GFR AFRICAN AMERICAN 142 ML/MIN (>=60); GFR NON AFRICAN AMERICAN 123 ML/MIN (>=60); GLUCOSE, SERUM 112 MG/DL (60-99); PHOSPHORUS, SERUM 3.9 MG/DL (2.5-4.5); SODIUM, SERUM 139 MMOL/L (135-148)
[2017-03-05 18:42] LABS: THYROGLOBULIN AUTO ANTIBODY 4.4 IU/mL (0.0-4.0)
[2017-03-05 22:44] LABS: ANCA <1:20 (()); MYELOPEROXIDASE ANTIBODY <0.2 AI (<1.0); PROTEINASE 3 ANTIBODY <0.2 AI (<1.0)
[2017-03-06 05:45] LABS: BASOPHILS 0.2 %; BASOPHILS ABSOLUTE 0.03 10/3/uL (0.0-0.16); EOSINOPHILS 0.1 %; EOSINOPHILS ABSOLUTE 0.01 10/3/uL (0.0-0.53); HEMATOCRIT 33.9 % (40.0-51.0); HEMOGLOBIN 10.7 g/dL (13.6-17.8); IMMATURE GRANULOCYTES 0.2 %; IMMATURE GRANULOCYTES ABSOLUTE 0.03 10/3/uL (0.0-0.11); LYMPHOCYTES 11.4 %; LYMPHOCYTES ABSOLUTE 1.41 10/3/uL (0.67-4.30); MEAN CORPUS HGB CONC 31.6 g/dL (32.0-36.0); MEAN CORPUSCULAR VOLUME 72.9 fL (80-100); MEAN PLATELET VOLUME 9.8 fL (9.2-13.0); MONOCYTES 11.4 %; MONOCYTES ABSOLUTE 1.41 10/3/uL (0.21-1.20); NEUTROPHILS 76.7 %; NEUTROPHILS ABSOLUTE 9.45 10/3/uL (2.02-8.40); PLATELET COUNT 341 10/3/uL (150-400); RBC DISTRIBUTION WIDTH 20.7 % (12.0-16.0); RED CELL COUNT 4.65 10/6/uL (4.7-6.1)
[2017-03-06 05:47] LABS: MANUAL DIFF NO %; WHITE BLOOD CELLS 12.3 10/3/uL (4.5-10.5)
[2017-03-06 06:03] LABS: BUN (BLOOD UREA NITROGEN) 17 MG/DL (6-23); CALCIUM, SERUM 9.1 MG/DL (8.5-10.4); CHLORIDE, SERUM 109 MMOL/L (96-112); CO2 (CARBON DIOXIDE) 22 MMOL/L (24-34); CREATININE 0.73 MG/DL (0.70-1.30); GFR AFRICAN AMERICAN 124 ML/MIN (>=60); GFR NON AFRICAN AMERICAN 107 ML/MIN (>=60); PHOSPHORUS, SERUM 3.1 MG/DL (2.5-4.5); POTASSIUM, SERUM 4.1 MMOL/L (3.5-5.3); SODIUM, SERUM 141 MMOL/L (135-148)
[2017-03-06 06:18] LABS: GLUCOSE, SERUM 155 MG/DL (60-99)
[2017-03-07 05:03] LABS: BASOPHILS 0.4 %; BASOPHILS ABSOLUTE 0.05 10/3/uL (0.0-0.16); EOSINOPHILS 0.9 %; EOSINOPHILS ABSOLUTE 0.12 10/3/uL (0.0-0.53); HEMOGLOBIN 9.3 g/dL (13.6-17.8); IMMATURE GRANULOCYTES 0.3 %; IMMATURE GRANULOCYTES ABSOLUTE 0.04 10/3/uL (0.0-0.11); LYMPHOCYTES 9.9 %; LYMPHOCYTES ABSOLUTE 1.38 10/3/uL (0.67-4.30); MEAN CORPUS HGB CONC 31.1 g/dL (32.0-36.0); MEAN CORPUSCULAR HEMOGLOB 22.6 pg (26.0-34.0); MEAN CORPUSCULAR VOLUME 72.7 fL (80-100); MEAN PLATELET VOLUME 10.7 fL (9.2-13.0); MONOCYTES 11.6 %; MONOCYTES ABSOLUTE 1.62 10/3/uL (0.21-1.20); NEUTROPHILS 76.9 %; NEUTROPHILS ABSOLUTE 10.74 10/3/uL (2.02-8.40); PLATELET COUNT 333 10/3/uL (150-400); RBC DISTRIBUTION WIDTH 20.7 % (12.0-16.0); RED CELL COUNT 4.11 10/6/uL (4.7-6.1)
[2017-03-07 05:06] LABS: HEMATOCRIT 29.9 % (40.0-51.0); MANUAL DIFF NO %
[2017-03-07 05:25] LABS: BUN (BLOOD UREA NITROGEN) 16 MG/DL (6-23); CALCIUM, SERUM 8.5 MG/DL (8.5-10.4); CHLORIDE, SERUM 109 MMOL/L (96-112); CO2 (CARBON DIOXIDE) 24 MMOL/L (24-34); CREATININE 0.63 MG/DL (0.70-1.30); GFR AFRICAN AMERICAN 131 ML/MIN (>=60); GFR NON AFRICAN AMERICAN 113 ML/MIN (>=60); GLUCOSE, SERUM 144 MG/DL (60-99); POTASSIUM, SERUM 3.9 MMOL/L (3.5-5.3); SODIUM, SERUM 137 MMOL/L (135-148)
[2017-03-07 05:26] LABS: PHOSPHORUS, SERUM 1.9 MG/DL (2.5-4.5)
[2017-03-08 06:23] LABS: BASOPHILS 0.3 %; BASOPHILS ABSOLUTE 0.03 10/3/uL (0.0-0.16); EOSINOPHILS 4.2 %; EOSINOPHILS ABSOLUTE 0.39 10/3/uL (0.0-0.53); HEMATOCRIT 25.9 % (40.0-51.0); HEMOGLOBIN 8.1 g/dL (13.6-17.8); IMMATURE GRANULOCYTES 0.3 %; IMMATURE GRANULOCYTES ABSOLUTE 0.03 10/3/uL (0.0-0.11); LYMPHOCYTES 14.9 %; LYMPHOCYTES ABSOLUTE 1.39 10/3/uL (0.67-4.30); MANUAL DIFF NO %; MEAN CORPUS HGB CONC 31.3 g/dL (32.0-36.0); MEAN CORPUSCULAR HEMOGLOB 22.7 pg (26.0-34.0); MEAN CORPUSCULAR VOLUME 72.5 fL (80-100); MEAN PLATELET VOLUME 10.3 fL (9.2-13.0); MONOCYTES 8.8 %; MONOCYTES ABSOLUTE 0.82 10/3/uL (0.21-1.20); NEUTROPHILS 71.5 %; NEUTROPHILS ABSOLUTE 6.64 10/3/uL (2.02-8.40); PLATELET COUNT 311 10/3/uL (150-400); RBC DISTRIBUTION WIDTH 20.7 % (12.0-16.0); RED CELL COUNT 3.57 10/6/uL (4.7-6.1); WHITE BLOOD CELLS 9.3 10/3/uL (4.5-10.5)
[2017-03-08 06:35] LABS: BUN (BLOOD UREA NITROGEN) 14 MG/DL (6-23); CALCIUM, SERUM 8.2 MG/DL (8.5-10.4); CHLORIDE, SERUM 108 MMOL/L (96-112); CO2 (CARBON DIOXIDE) 27 MMOL/L (24-34); CREATININE 0.49 MG/DL (0.70-1.30); GFR AFRICAN AMERICAN 146 ML/MIN (>=60); GFR NON AFRICAN AMERICAN 126 ML/MIN (>=60); GLUCOSE, SERUM 141 MG/DL (60-99); POTASSIUM, SERUM 3.8 MMOL/L (3.5-5.3); SODIUM, SERUM 140 MMOL/L (135-148)
[2017-03-08 06:36] LABS: PHOSPHORUS, SERUM 2.6 MG/DL (2.5-4.5)
[2017-03-08 07:10] LABS: PROCALCITONIN 0.28 ng/mL (<0.5)
[2017-03-09 06:23] LABS: BASOPHILS 0.4 %; BASOPHILS ABSOLUTE 0.03 10/3/uL (0.0-0.16); EOSINOPHILS 4.7 %; EOSINOPHILS ABSOLUTE 0.35 10/3/uL (0.0-0.53); HEMATOCRIT 25.9 % (40.0-51.0); HEMOGLOBIN 7.9 g/dL (13.6-17.8); IMMATURE GRANULOCYTES 0.1 %; IMMATURE GRANULOCYTES ABSOLUTE 0.01 10/3/uL (0.0-0.11); LYMPHOCYTES 20.1 %; MEAN CORPUS HGB CONC 30.5 g/dL (32.0-36.0); MEAN CORPUSCULAR HEMOGLOB 22.4 pg (26.0-34.0); MEAN CORPUSCULAR VOLUME 73.4 fL (80-100); MEAN PLATELET VOLUME 10.2 fL (9.2-13.0); MONOCYTES 9.7 %; MONOCYTES ABSOLUTE 0.72 10/3/uL (0.21-1.20); NEUTROPHILS ABSOLUTE 4.84 10/3/uL (2.02-8.40); PLATELET COUNT 330 10/3/uL (150-400); RBC DISTRIBUTION WIDTH 20.8 % (12.0-16.0); RED CELL COUNT 3.53 10/6/uL (4.7-6.1); WHITE BLOOD CELLS 7.5 10/3/uL (4.5-10.5)
[2017-03-09 06:25] LABS: MANUAL DIFF NO %
[2017-03-09 06:39] LABS: BUN (BLOOD UREA NITROGEN) 12 MG/DL (6-23); CALCIUM, SERUM 8.9 MG/DL (8.5-10.4); CHLORIDE, SERUM 109 MMOL/L (96-112); CO2 (CARBON DIOXIDE) 27 MMOL/L (24-34); CREATININE 0.44 MG/DL (0.70-1.30); GFR AFRICAN AMERICAN 152 ML/MIN (>=60); GFR NON AFRICAN AMERICAN 131 ML/MIN (>=60); GLUCOSE, SERUM 124 MG/DL (60-99); PHOSPHORUS, SERUM 3.8 MG/DL (2.5-4.5); POTASSIUM, SERUM 4.1 MMOL/L (3.5-5.3); SODIUM, SERUM 143 MMOL/L (135-148)
[2017-03-09 06:43] LABS: ANISOCYTOSIS 1+ (5-10/OIF) (0-5/OIF); MICROCYTES 1+ (5-10/OIF) (0-5/OIF); PLATELET ESTIMATE ADQ (ADEQUATE); POLYCHROMASIA 1+ (2-5/OIF) (0-1/OIF)
[2017-03-09 06:44] LABS: BUN (BLOOD UREA NITROGEN) 14 MG/DL (6-23); CALCIUM, SERUM 8.5 MG/DL (8.5-10.4); CHLORIDE, SERUM 111 MMOL/L (96-112); CO2 (CARBON DIOXIDE) 25 MMOL/L (24-34); CREATININE 0.49 MG/DL (0.70-1.30); GFR AFRICAN AMERICAN 146 ML/MIN (>=60); GFR NON AFRICAN AMERICAN 126 ML/MIN (>=60); GLUCOSE, SERUM 124 MG/DL (60-99); POTASSIUM, SERUM 4.4 MMOL/L (3.5-5.3); SODIUM, SERUM 144 MMOL/L (135-148)
[2017-03-10 06:01] LABS: BASOPHILS 0.6 %; BASOPHILS ABSOLUTE 0.04 10/3/uL (0.0-0.16); EOSINOPHILS 4.4 %; HEMOGLOBIN 7.8 g/dL (13.6-17.8); IMMATURE GRANULOCYTES 0.4 %; IMMATURE GRANULOCYTES ABSOLUTE 0.03 10/3/uL (0.0-0.11); LYMPHOCYTES 19.7 %; LYMPHOCYTES ABSOLUTE 1.34 10/3/uL (0.67-4.30); MEAN CORPUS HGB CONC 31.2 g/dL (32.0-36.0); MEAN CORPUSCULAR HEMOGLOB 22.7 pg (26.0-34.0); MEAN CORPUSCULAR VOLUME 72.9 fL (80-100); MEAN PLATELET VOLUME 9.9 fL (9.2-13.0); MONOCYTES ABSOLUTE 0.61 10/3/uL (0.21-1.20); NEUTROPHILS 65.9 %; NEUTROPHILS ABSOLUTE 4.49 10/3/uL (2.02-8.40); PLATELET COUNT 347 10/3/uL (150-400); RBC DISTRIBUTION WIDTH 20.6 % (12.0-16.0); RED CELL COUNT 3.43 10/6/uL (4.7-6.1); WHITE BLOOD CELLS 6.8 10/3/uL (4.5-10.5)
[2017-03-10 06:03] LABS: MANUAL DIFF NO %
[2017-03-10 06:10] LABS: BUN (BLOOD UREA NITROGEN) 13 MG/DL (6-23); CALCIUM, SERUM 8.9 MG/DL (8.5-10.4); CHLORIDE, SERUM 110 MMOL/L (96-112); CO2 (CARBON DIOXIDE) 24 MMOL/L (24-34); CREATININE 0.47 MG/DL (0.70-1.30); GFR AFRICAN AMERICAN 148 ML/MIN (>=60); GFR NON AFRICAN AMERICAN 128 ML/MIN (>=60); GLUCOSE, SERUM 124 MG/DL (60-99); PHOSPHORUS, SERUM 3.5 MG/DL (2.5-4.5); POTASSIUM, SERUM 4.1 MMOL/L (3.5-5.3); SODIUM, SERUM 141 MMOL/L (135-148)
[2017-03-11 05:59] LABS: BASOPHILS 0.5 %; BASOPHILS ABSOLUTE 0.04 10/3/uL (0.0-0.16); EOSINOPHILS 3.7 %; EOSINOPHILS ABSOLUTE 0.28 10/3/uL (0.0-0.53); HEMATOCRIT 26.2 % (40.0-51.0); HEMOGLOBIN 8.3 g/dL (13.6-17.8); IMMATURE GRANULOCYTES 1.1 %; IMMATURE GRANULOCYTES ABSOLUTE 0.08 10/3/uL (0.0-0.11); LYMPHOCYTES 19.6 %; LYMPHOCYTES ABSOLUTE 1.49 10/3/uL (0.67-4.30); MEAN CORPUS HGB CONC 31.7 g/dL (32.0-36.0); MEAN CORPUSCULAR HEMOGLOB 23.1 pg (26.0-34.0); MEAN PLATELET VOLUME 10.1 fL (9.2-13.0); MONOCYTES 7.2 %; MONOCYTES ABSOLUTE 0.55 10/3/uL (0.21-1.20); NEUTROPHILS 67.9 %; NEUTROPHILS ABSOLUTE 5.15 10/3/uL (2.02-8.40); PLATELET COUNT 398 10/3/uL (150-400); RBC DISTRIBUTION WIDTH 20.2 % (12.0-16.0); RED CELL COUNT 3.59 10/6/uL (4.7-6.1); WHITE BLOOD CELLS 7.6 10/3/uL (4.5-10.5)
[2017-03-11 06:08] LABS: MANUAL DIFF NO %
[2017-03-11 06:16] LABS: BUN (BLOOD UREA NITROGEN) 13 MG/DL (6-23); CALCIUM, SERUM 8.4 MG/DL (8.5-10.4); CHLORIDE, SERUM 110 MMOL/L (96-112); CO2 (CARBON DIOXIDE) 22 MMOL/L (24-34); GFR AFRICAN AMERICAN 144 ML/MIN (>=60); GFR NON AFRICAN AMERICAN 125 ML/MIN (>=60); GLUCOSE, SERUM 122 MG/DL (60-99); PHOSPHORUS, SERUM 3.1 MG/DL (2.5-4.5); POTASSIUM, SERUM 4.1 MMOL/L (3.5-5.3); SODIUM, SERUM 140 MMOL/L (135-148)
[2017-03-12] MEDS ORDERED: FOLIC PO (15:31)
[2017-03-12] MEDS ORDERED: ZYPREXA10 MG PO (15:36)
[2017-03-12] MEDS ORDERED: MULTIPLE VIT PO (15:41)
== END 2017-03-12 19:40 | disposition home health service (06) | DRG 327 ==
LOC: ER 18:59 → 4SO 21:34
PROVIDERS: Emergency Medicine; Internal Medicine; Nurse Practitioner; Nurse Practitioner Family; Psychiatry & Neurology Neurology; Student in an Organized Health Care Education/Training Program; Surgery
DX: K91.89 Other postprocedural complications and disorders of digestive system (principal); N17.9 Acute kidney failure, unspecified; K56.5 Intestinal adhesions [bands] with obstruction (postinfection); E51.9 Thiamine deficiency, unspecified; K56.7 Ileus, unspecified; E44.0 Moderate protein-calorie malnutrition; E87.2 Acidosis; G20 Parkinson's disease; Y83.2 Surgical operation with anastomosis, bypass or graft as the cause of abnormal reaction of the patient, or of later complication, without mention of misadventure at the time of the procedure; K21.9 Gastro-esophageal reflux disease without esophagitis; G25.81 Restless legs syndrome; F31.9 Bipolar disorder, unspecified; E86.0 Dehydration; E78.5 Hyperlipidemia, unspecified; E03.9 Hypothyroidism, unspecified; Z79.899 Other long term (current) drug therapy; Z87.11 Personal history of peptic ulcer disease; Z90.3 Acquired absence of stomach [part of]; Z98.0 Intestinal bypass and anastomosis status; Z88.8 Allergy status to other drugs, medicaments and biological substances; H54.7 Unspecified visual loss; T36.3X5A Adverse effect of macrolides, initial encounter; F41.9 Anxiety disorder, unspecified; Z79.891 Long term (current) use of opiate analgesic; R53.1 Weakness; Z72.0 Tobacco use; Z68.32 Body mass index [BMI] 32.0-32.9, adult; E66.9 Obesity, unspecified; K59.03 Drug induced constipation; T40.2X5A Adverse effect of other opioids, initial encounter; Y92.239 Unspecified place in hospital as the place of occurrence of the external cause; E53.8 Deficiency of other specified B group vitamins; G89.4 Chronic pain syndrome; K52.89 Other specified noninfective gastroenteritis and colitis
CPT/HCPCS: 36569; 70450; 70544; 70548; 70553; 80048; 80053; 80061; 81001; 82140; 82330; 82607; 82746; 82962; 83036; 83516; 83516-59; 83690; 83735; 84100; 84134; 84145; 84425; 84439; 84443; 84478; 85025; 85652; 86039; 86140; 86235; 86235-59; 86255; 86256; 86800; 87070; 88307; 93005; 96374; 96375; 97110-GP; 97116-GP; 97162-GP; 97530-GP; 99285; A9270-GY; A9577; C1751; C8929; C9113; G8978-CK-GP; G8979-CI-GP; J0330; J0690; J1170; J2250; J2270; J2405; J2550; J2710; J3010; J3411; Q9957